=== PATIENT | male | born 1955 | race Two or more races ===

== ENCOUNTER 2019-07-10 11:18 | Emergency (ER) | payer MEDICAID ==
[~2019-07-10] VITALS: Ht 172.7 cm; Wt 81.6 kg
[~2019-07-10 11:18] MED LIST: AMOXICILLIN500 MG ORAL; PROMETHAZINE-C118 M1 ORAL; UNOBMED
[2019-07-10] MEDS ORDERED: NKM (11:29)
[2019-07-10 11:30] VITALS: BP 121/63
--- NOTE | 2019-07-10 11:31 | Emergency Room Report ---
History of Present Illness General Chief Complaint: Male Urogenital Problems Source: Patient Present Illness HPI Patient is a 64-year-old male with increased right-sided flank pain for the past 3 days. Patient reports having prior history of prostate disease. He denies any vomiting. He reports having some increased urinary discomfort. Allergies: Coded Allergies: No Known Allergies (Unverified , 10/11/18) Patient History Reviewed Nursing Documentation: PMH: Agreed; PSxH: Agreed Nursing Documentation-PMH Past Medical History: No History, Except For Hx Cardiac Problems: Yes - heart attack May 2018 Review of Systems All Other Systems: negative except mentioned in HPI Physical Exam Vital Signs Date Time Temp Pulse Resp B/P (MAP) Pulse Ox O2 Delivery O2 Flow Rate FiO2 07/10/19 11:23 97.9 20 106/65 (79) 97 Room Air General Appearance: well appearing, no apparent distress, alert, GCS 15 Head: normocephalic, atraumatic ENT: hearing grossly normal, normal voice Neck: full range of motion, supple Respiratory: lungs clear, no respiratory distress, speaking full sentences Cardiovascular #1: normal inspection, no edema Musculoskeletal: normal inspection Neurologic: alert, motor strength/tone normal, 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 Differential diagnosis included was not limited to pneumonia, renal stone, rib fracture, pulmonary embolism, ulcer, enteritis, pyelonephritis among others. CT imaging was ordered to evaluate for possible renal stone. CT imaging read by radiology showed enlarged prostate without evident renal stone. Laboratory testing was unremarkable. Patient was given prescription for oral antibiotics as well as pain medications. He was advised to follow-up with a urology in the next few days. He is to return if worse. This medical record is generated with [employer] grader operator software. There may be some grader operator discrepancies related to use of this software Labs Test 07/10/19 12:55 07/10/19 13:15 White Blood Count 10.8 K/UL (4.8-10.8) Red Blood Count 6.03 M/UL (4.70-6.10) Hemoglobin 18.0 G/DL (14.2-18.0) Hematocrit 55.1 % (42.0-52.0) Mean Corpuscular Volume 91 FL (80-99) Mean Corpuscular Hemoglobin 29.9 PG (27.0-31.0) Mean Corpuscular Hemoglobin Concent 32.7 G/DL (32.0-36.0) Red Cell Distribution Width 12.0 % (11.6-14.8) Platelet Count 223 K/UL (150-450) Mean Platelet Volume 9.9 FL (6.5-10.1) Neutrophils (%) (Auto) 62.3 % (45.0-75.0) Lymphocytes (%) (Auto) 25.6 % (20.0-45.0) Monocytes (%) (Auto) 9.2 % (1.0-10.0) Eosinophils (%) (Auto) 1.9 % (0.0-3.0) Basophils (%) (Auto) 1.0 % (0.0-2.0) Sodium Level 140 MMOL/L (136-145) Potassium Level 4.1 MMOL/L (3.5-5.1) Chloride Level 103 MMOL/L (98-107) Carbon Dioxide Level 30 MMOL/L (21-32) Anion Gap 8 mmol/L (5-15) Blood Urea Nitrogen 10 mg/dL (7-18) Creatinine 1.1 MG/DL (0.55-1.30) Estimat Glomerular Filtration Rate > 60 mL/min (>60) Glucose Level 92 MG/DL (74-106) Calcium Level 8.8 MG/DL (8.5-10.1) Total Bilirubin 0.5 MG/DL (0.2-1.0) Aspartate Amino Transf (AST/SGOT) 20 U/L (15-37) Alanine Aminotransferase (ALT/SGPT) 39 U/L (12-78) Alkaline Phosphatase 71 U/L (46-116) Total Protein 7.3 G/DL (6.4-8.2) Albumin 3.6 G/DL (3.4-5.0) Globulin 3.7 g/dL Albumin/Globulin Ratio 1.0 (1.0-2.7) Urine Color Pale yellow Urine Appearance Clear Urine pH 5 (4.5-8.0) Urine Specific [place] 1.020 (1.005-1.035) Urine Protein Negative (NEGATIVE) Urine Glucose (UA) Negative (NEGATIVE) Urine Ketones Negative (NEGATIVE) Urine Blood 2+ (NEGATIVE) Urine Nitrite Negative (NEGATIVE) Urine Bilirubin Negative (NEGATIVE) Urine Urobilinogen Normal MG/DL (0.0-1.0) Urine Leukocyte Esterase Negative (NEGATIVE) Urine RBC 2-4 /HPF (0 - 0) Urine WBC 0-2 /HPF (0 - 0) Urine Squamous Epithelial Cells Occasional /LPF Urine Bacteria Occasional /HPF (NONE) Last Vital Signs Date Time Temp Pulse Resp B/P (MAP) Pulse Ox O2 Delivery O2 Flow Rate FiO2 07/10/19 11:23 97.9 20 106/65 (79) 97 Room Air Status: improved Disposition: HOME, SELF-CARE Condition: Stable Scripts Ibuprofen* (MOTRIN*) 600 Mg Tablet 600 MG ORAL Q8H PRN for For Pain, #30 TAB 0 Refills Prov: Blue Cortes MD 07/10/19 Ciprofloxacin Hcl* (CIPROFLOXACIN HCL*) 500 Mg Tablet 500 MG ORAL Q12H, #14 TAB 0 Refills Prov: Blue Cortes MD 07/10/19 Blue Cortes MD Jul 10, 2019 11:31
[2019-07-10 12:09] VITALS: BP 121/63
[2019-07-10] MEDS ORDERED: Ketorolac 30mg Inj IV ONE (13:00)
--- NOTE | 2019-07-10 13:01 | Diagnostic Imaging Report ---
Indication: Increased right-sided flank pain for the past 3 days Technique: Spiral acquisitions obtained through the abdomen and pelvis. No oral or IV contrast utilized, per urinary stone protocol. Multiplanar reconstructions were generated. Total dose length product 1435 mGycm. CTDIvol(s) 24 mGy. Dose reduction achieved using automated exposure control Comparison: none Findings: No renal or ureteral calculi, hydronephrosis, or hydroureter demonstrated. There is symmetric standing of the bilateral perinephric fat. Lack of IV contrast limits assessment of the renal parenchyma. No gross renal parenchymal mass or cyst demonstrated. Lack of IV contrast limits assessment of the other solid organs. The liver, gallbladder, bile ducts, pancreas, spleen, adrenals are unremarkable. No retroperitoneal or mesenteric mass or adenopathy. No pelvic mass or adenopathy. The prostate is somewhat enlarged, measuring 5 x 5.2 cm. No evidence of colonic diverticulosis or diverticulitis. The appendix is normal. No small bowel distention. No free or loculated intraperitoneal gas or fluid is evident. There is a small indirect right inguinal hernia which contains only fat. The included lung bases demonstrate posterior dependent atelectatic changes. The bones demonstrate mild degenerative spondylosis changes. Impression: No definite acute abnormality demonstrated Nonspecific bilateral perinephric fat stranding Mild prostatomegaly Incidental findings as noted, including mild degenerative spondylosis, posterior dependent pulmonary atelectatic changes, small fat-containing right inguinal hernia The CT scanner at [facility] is accredited by the [employer] and the scans are performed using protocols designed to limit radiation exposure to as low as reasonably achievable to attain images of sufficient resolution adequate for diagnostic evaluation.
[2019-07-10 13:14] LABS: EOSINOPHILS % (AUTO) 1.9 % (0.0-3.0); HEMATOCRIT 55.1 % (42.0-52.0); LYMPHOCYTES % (AUTO) 25.6 % (20.0-45.0); MEAN CORPUSCULAR VOLUME 91 FL (80-99); MONOCYTES % (AUTO) 9.2 % (1.0-10.0); NEUTROPHILS % (AUTO) 62.3 % (45.0-75.0); PLATELET COUNT 223 K/UL (150-450); RED BLOOD COUNT 6.03 M/UL (4.70-6.10); WHITE BLOOD COUNT 10.8 K/UL (4.8-10.8)
[2019-07-10 13:30] LABS: ANION GAP 8 mmol/L (5-15); BLOOD UREA NITROGEN 10 mg/dL (7-18); CALCIUM 8.8 MG/DL (8.5-10.1); CARBON DIOXIDE 30 MMOL/L (21-32); CHLORIDE 103 MMOL/L (98-107); CREATININE 1.1 MG/DL (0.55-1.30); POTASSIUM 4.1 MMOL/L (3.5-5.1); SODIUM 140 MMOL/L (136-145)
[2019-07-10 13:33] LABS: ALANINE AMINOTRANSFERASE 39 U/L (12-78); ALBUMIN 3.6 G/DL (3.4-5.0); ALKALINE PHOSPHATASE 71 U/L (46-116); ASPARTATE AMINO TRANSFERASE 20 U/L (15-37); BILIRUBIN,TOTAL 0.5 MG/DL (0.2-1.0)
[2019-07-10] MEDS ORDERED: CIPROFLOXACIN500 M2 ORAL (13:37)
[2019-07-10] MEDS ORDERED: IBUPROFEN600 MG ORAL (13:37)
[2019-07-10 13:50] VITALS: BP 125/66
[2019-07-10 13:58] LABS: APPEARANCE,URINE CLEAR; BILIRUBIN, URINE NEGATIVE (NEGATIVE); COLOR,URINE PALE YELLOW; GLUCOSE, URINE (UA) NEGATIVE (NEGATIVE); KETONES,URINE NEGATIVE (NEGATIVE); LEUKOCYTE ESTERASE ,URINE NEGATIVE (NEGATIVE); NITRITE,URINE NEGATIVE (NEGATIVE); PH,URINE 5 (4.5-8.0); PROTEIN,URINE NEGATIVE (NEGATIVE); UROBILINOGEN,URINE NORMAL MG/DL (0.0-1.0)
== END 2019-07-10 13:50 | disposition home or self-care (01) ==
LOC: EMR 12:36
DX: M54.5 Low back pain (principal); N40.0 Benign prostatic hyperplasia without lower urinary tract symptoms; I25.2 Old myocardial infarction
CPT/HCPCS: 36415; 74176; 80053; 81003; 85025; 96374; J1885; Z7502; 99284

== ENCOUNTER 2020-07-04 04:42 | Inpatient (IN) | payer MEDICAID ==
[~2020-07-04] VITALS: Ht 170.2 cm; Wt 79.4 kg
[~2020-07-04 04:42] MED LIST changes: +CIPROFLOXACIN500 M2 ORAL; +IBUPROFEN600 MG ORAL; +NKM
--- NOTE | 2020-07-04 05:00 | NUR ---
ED Nurse Note: Pt ambulated to ED from home c/o lower abdominal pain with urinary urgency and penile pain for several hours. Pt presents with fever 100.3, pt is A&OX4, vss. Pt has a hx of BPH. small thin yellowish discharge noted from urethra.
--- NOTE | 2020-07-04 05:13 | Emergency Room Report ---
History of Present Illness General Chief Complaint: Male Urogenital Problems Source: Patient Present Illness HPI 65-year-old male in hospital medical history of BPH presents to the emergency department with chief complaint of urinary retention since last night. Patient states that he last saw a urologist 3 months ago. He is taking daily tamsulosin but has noticed increased urinary urgency and difficulty voiding progressively for the past 3 months. He denies any nausea, vomiting, diarrhea constipation, chest pain, midline back pain, saddle anesthesia flank pain, fever, penile discharge, dysuria, hematuria, melena or hematochezia. He states that this is similar to the last time he was here in the emergency department for similar issue in 2019 The patient's symptoms were gradual onset, severity was moderate, duration since 1 to 2 days. Quality: Urinary hesitancy Past medical history: BPH Past surgical history: Denies Smoking: Denies Alcohol use: Denies Drug use: Denies Review of systems: CONST: No fevers or chills, No night sweats PULMONARY: No productive cough, No shortness of breath CARDIAC: No chest pain, No palpitations GI: No vomiting, No diarrhea , No melena_or_BRBPR : No dysuria, No hematuria, No discharge NEURO: No new_focal_weakness_or_numbness, No confusion, No vision changes 14 point Review of Systems is otherwise negative except per HPI Physical Exam: GENERAL: Awake_alert_ nontoxic, no acute distress Spo2 98% on RA -febrile. EYES: Extraocular muscles are intact. Conjunctivae clear. Lids without swelling ENT: External nose and ear normal_in_appearance. Oropharynx clear. Head_atraumatic, Moist_oral_mucosa NECK: No JVD. No meningismus. No thyromegaly. Supple. Trachea midline RESP: Normal respiratory effort. Symmetric rise. No stridor. Clear_to_ausculta tion_No_rales_No_wheezes CARDIAC: Tachycardic and regular rhytm. No_significant pedal edema. ABDOMEN: Soft. Nondistended. Suprapubic tenderness to palpation_No_rebound_or_guarding. No CVA tenderness to palpation Negative Munoz sign : Uncircumcised. No scrotal lesion. No penile discharge. Normal testicular lie bilaterally. Chaperoned by AMANDA LEMUS: Normal muscle tone, without rigidity. Extremities without asymmetric deformity or swelling. SKIN: Warm and dry. No visible cyanosis or pallor NEUROLOGIC: Alert, oriented x3. Motor_and_sensation_grossly_intact. No truncal ataxia. Gait_normal Psych: Normal mood and affect, normal judgment and insight - COORDINATION OF CARE Case was discussed with: Patient Any labs and imaging that were ordered were interpreted as part of the medical decision making: Medical Decision Making/Plan: Differential diagnosis includes Urinary retention secondary to BPH, prostatitis, epididymitis, pyelonephritis/UTI, pancreatitis, atypical appendicitis, gastroparesis, gastritis, peptic ulcer disease, among others. Doubt cholecystitis, choledocholithiasis, hepatitis, small bowel obstruction, volvulus, AAA Patient is well appearing with stable vital signs although he is noted to be febrile and tachycardic. Abdominal exam demonstrates suprapubic tenderness palpation without rebound or guarding. I did review previous medical records. Patient has history of BPH as noted on CT scan Tijerina was inserted. Labs ordered to evaluate for obstructive uropathy. Septic work-up ordered due to fever and tachycardia. Patient received NS 30 cc/kg bolus. Blood cultures and urine cultures were collected. Rocephin given CT abd/pelvis pending. Care to be transitioned to oncoming ER doctor Dr Haque Allergies: Coded Allergies: No Known Allergies (Unverified , 10/11/18) COVID-19 Screening Contact w/high risk pt: No Experienced COVID-19 symptoms?: Yes COVID-19 Testing performed [employer]: Yes - may 2019 COVID-19 Screening: Negative COVID-19 COVID-19 Testing Source: [facility] Nursing Documentation-[facility] Past Medical History: No History, Except For Hx Cardiac Problems: Yes - heart attack May 2018 Physical Exam Vital Signs Date Time Temp Pulse Resp B/P (MAP) Pulse Ox O2 Delivery O2 Flow Rate FiO2 07/04/20 04:56 100.9 101 18 111/58 (75) 97 Room Air Sp02 EP Interpretation: reviewed, normal Medical Decision Making Diagnostic Impression: Primary Impression: BPH (benign prostatic hyperplasia) Additional Impression: Urinary retention EKG Diagnostic Results Troponin ordered: Yes When was troponin ordered?: Jul 04, 2020 Rhythm Strip Diag. Results Rhythm Strip Time: 05:48 EP Interpretation: yes Rate: 101 Rhythm: no PVC's, no ectopy, other - Sinus tachycardia Reevaluation Time: 05:48 Last Vital Signs Date Time Temp Pulse Resp B/P (MAP) Pulse Ox O2 Delivery O2 Flow Rate FiO2 07/04/20 04:56 100.9 101 18 111/58 (75) 97 Room Air Status: improved Admit Decision Time: 06:00 Condition: Stable Signed Out To: Liza Lundberg D.O. Jul 04, 2020 05:13
[2020-07-04 05:30] VITALS: BP 111/58
--- NOTE | 2020-07-04 05:30 | NUR ---
ED Nurse Note: 18F coude cath inserted without complication, small amount of cloudy yellow urine noted, MD verified placement and bladder capacity via US. pt tolerated well.
[2020-07-04] MEDS: Tamsulosin 0.4mg cap ORAL SCH ×2 (05:44→05:48)
[2020-07-04] MEDS ORDERED: cefTRIAXone 1 GM in NS 55 ML IVPB ONE ×2 (05:45→06:00)
[2020-07-04] MEDS ORDERED: Tamsulosin 0.4mg cap ORAL ONE (05:45)
[2020-07-04] MEDS ORDERED: Morphine Sulfate 4mg/ml Inj (IV USE ONLY) ONE (05:46)
[2020-07-04] MEDS: Morphine Sulfate 4mg/ml Inj (IV USE ONLY) IVP ONE ×2 (05:47→05:48)
[2020-07-04 05:57] LABS: BILIRUBIN, URINE NEGATIVE (NEGATIVE); GLUCOSE, URINE (UA) NEGATIVE (NEGATIVE); KETONES,URINE 2+ (NEGATIVE); LEUKOCYTE ESTERASE ,URINE 3+ (NEGATIVE); NITRITE,URINE POSITIVE (NEGATIVE); PH,URINE 5 (4.5-8.0); PROTEIN,URINE 3+ (NEGATIVE); UROBILINOGEN,URINE NORMAL MG/DL (0.0-1.0)
[2020-07-04 05:58] LABS: HEMATOCRIT 47.6 % (42.0-52.0); HEMOGLOBIN 15.9 G/DL (14.2-18.0); MEAN CORPUSCULAR VOLUME 92 FL (80-99); PLATELET COUNT 177 K/UL (150-450); RED BLOOD COUNT 5.19 M/UL (4.70-6.10)
[2020-07-04] MEDS ORDERED: Acetaminophen 500mg (ES) tab ORAL ONE (06:00)
[2020-07-04] MEDS ORDERED: Omnipaque-300 100ml vial INJ PRN (06:00)
[2020-07-04] MEDS ORDERED: Acetaminophen 650 MG SUPP RECTAL ONE (06:00)
[2020-07-04 06:11] LABS: CALCIUM 8.9 MG/DL (8.5-10.1); CREATININE 1.3 MG/DL (0.55-1.30); POTASSIUM 4.2 MMOL/L (3.5-5.1)
[2020-07-04 06:21] LABS: APPEARANCE,URINE CLOUDY; COLOR,URINE YELLOW
[2020-07-04 06:23] LABS: ALBUMIN 3.4 G/DL (3.4-5.0); ALBUMIN/GLOBULIN RATIO 0.9 (1.0-2.7); BILIRUBIN,TOTAL 1.6 MG/DL (0.2-1.0)
[2020-07-04 06:26] LABS: WHITE BLOOD COUNT 31.5 K/UL (4.8-10.8)
[2020-07-04 06:29] LABS: BILIRUBIN,DIRECT 0.2 MG/DL (0.0-0.3)
[2020-07-04 06:32] LABS: INR 1.1 (0.9-1.1)
--- NOTE | 2020-07-04 06:42 | NUR ---
ED Nurse Note: Pt to Ct
--- NOTE | 2020-07-04 07:56 | Diagnostic Imaging Report ---
EXAM: CT Abdomen and Pelvis With Intravenous Contrast CLINICAL HISTORY: 65-year-old male in hospital medical history of BPH presents to the emergency department with chief complaint of urinary retention since last night. Patient states that he last saw a urologist 3 months ago. He is taking daily tamsulosin but has noticed increased urinary urgency and difficulty voiding progressively for the past 3 months. He denies any nausea, vomiting, diarrhea constipation, chest pain, midline back pain, saddle anesthesia flank pain, fever, penile discharge, dysuria, hematuria, melena or hematochezia. He states that this is similar to the last time he was here in the emergency department for similar issue in 2019 TECHNIQUE: Axial computed tomography images of the abdomen and pelvis with intravenous contrast. CTDI is 7.60 mGy and DLP is 432.60 mGy-cm. One or more of the following dose reduction techniques were used: automated exposure control, adjustment of the mA and/or kV according to patient size, use of iterative reconstruction technique. COMPARISON: July 10, 2019. FINDINGS: Artifacts: Motion artifact. Lung bases: Dependent vascular congestion in the lung bases. ABDOMEN: Liver: Unremarkable. No mass. Gallbladder and bile ducts: Unremarkable. No calcified stones. No ductal dilation. Pancreas: Unremarkable. No mass. No ductal dilation. Spleen: Unremarkable. No splenomegaly. Adrenals: Unremarkable. No mass. Kidneys and ureters: Bilateral perinephric stranding, similar to prior exam. No hydronephrosis. No renal or ureteral stones on this contrast- enhanced study. Stomach and bowel: Distended stomach. No small bowel obstruction. Diverticulosis without evidence of diverticulitis. PELVIS: Appendix: Normal appendix. Bladder: Tijerina balloon within decompressed bladder. Reproductive: Enlarged prostate measuring 5.2 x 6.7 x 5.4 cm. Mild stranding about the prostate and bilateral seminal vesicles. ABDOMEN and PELVIS: Intraperitoneal space: Unremarkable. No free air. No significant fluid collection. Bones/joints: No acute fracture. No dislocation. Soft tissues: Small right inguinal hernia containing fat. Vasculature: Normal caliber abdominal aorta. Lymph nodes: Unremarkable. No enlarged lymph nodes. IMPRESSION: Enlarged prostate measuring 5.2 x 6.7 x 5.4 cm with encroachment into bladder base. Mild stranding about the prostate and bilateral seminal vesicles, correlate for infection. Bilateral perinephric stranding, similar to prior exam, may be due to chronic medical renal disease. Correlate with clinical findings and lab values to exclude pyelonephritis. No hydronephrosis. No renal or ureteral stones on this contrast-enhanced study.
[2020-07-04] MEDS ORDERED: Ciprofloxacin 500mg tab ORAL ONE (08:00)
--- NOTE | 2020-07-04 08:20 | NUR ---
ED Nurse Note: received hand off from AMANDA Reyna for continuity of care. Pt on bed, awake and alert x4, pt satting well on RA, denies any discomfort as of now. Pt was tested for rapid covid, swab sent to lab.
[2020-07-04 10:06] VITALS: BP 115/62
[2020-07-04 14:05] VITALS: BP 118/66
--- NOTE | 2020-07-04 14:05 | NUR ---
ED Nurse Note: pt on bed, awake and alert x 4, no acute distress as of now. Noted urine output on ribeiro with 600ml yellowish urine with sediments.
[2020-07-04] MEDS ORDERED: FLOMAX0.4 MG ORAL (14:26)
[2020-07-04] MEDS ORDERED: Miralax 17gm pkt ORAL PRN (14:30)
[2020-07-04] MEDS ORDERED: Albuterol/Ipratropium 3ml neb HHN PRN (14:30)
--- NOTE | 2020-07-04 14:44 | NUR ---
ED Nurse Note: juice and water offered to pt.
--- NOTE | 2020-07-04 17:21 | NUR ---
ED Nurse Note: handed dinner tray to pt.
--- NOTE | 2020-07-04 19:35 | NUR ---
NURSE NOTES: Receive a report from AMANDA Kuhn from ED.
--- NOTE | 2020-07-04 19:43 | NUR ---
ED Nurse Note: hand off given to AMANDA Brown in MS unit
--- NOTE | 2020-07-04 19:55 | NUR ---
NURSE NOTES: Pt admitted from ED via gurney. Awake and alert. Syriac/Persian speaking. No respiratory distress noted. Feeling chill. Tylenol 650mg given @ ED for fever before admitted. Tijerina catheter 16 Fr. inserted stated and cloudy urine patent. Skin intact. Done check belonging list. Provide unit orientation. Bed is locked and lowest. Call light within reach. Will continue to monitor.
--- NOTE | 2020-07-04 19:55 | NUR ---
ED Nurse Note: Pt was transferred to [facility] unit under the care of dr alvarez, report given to guido rn for continuity of care.Pt was transferred on stable condition; all belongings was sent with pt.
[2020-07-04 20:00] VITALS: BP 120/55
--- NOTE | 2020-07-04 20:20 | NUR ---
NURSE NOTES: Received admission orders by Dr. Yung. Reported pt's pain on lower abdomen for pain medication. Will continue to follow up.
[2020-07-04] MEDS: Morphine Sulfate 2mg/ml Inj(IV/IM USE ONLY) IVP PRN (21:44)
[2020-07-04] MEDS: Cefepime HCl 2 GM in NS 110 ML IV SCH (21:54)
[2020-07-04] MEDS: Heparin 5000 units/ml inj SUBQ SCH (21:58)
[2020-07-04] MEDS ORDERED: Vancomycin 1.5gm/300ml Premix IVPB ONE (22:00)
--- NOTE | 2020-07-04 22:55 | History & Physical ---
History and Physical History & Physicial -[id number] Yinka Lorenzo MD Jul 04, 2020 22:55
--- NOTE | 2020-07-04 23:00 | NUR ---
NURSE NOTES: Given IV ATB and pain medication. No adverse reactions noted. Will continue to monitor.
[2020-07-05] VITALS: BP 92/57
[2020-07-05] MEDS ORDERED: Vancomycin 1 GM in D5W 275 ML IV SCH (00:30)
[2020-07-05 04:30] VITALS: BP 121/65
--- NOTE | 2020-07-05 07:21 | NUR ---
NURSE NOTES: Report received from o RN, rounds made. Patient resting in semi-fowlers position in bed. AOx4, Japanese/Kiswahili speaking. Respirations even/unlabored on RA. Denies SOB, pain, NV. FC draining y/cloudy urine. Call light in reach, bed in lowest position, will continue to monitor.
--- NOTE | 2020-07-05 07:30 | NUR ---
NURSE HAND-OFF: Important Events on Shift: Admission for Sepsis/ UTI, Urine patent via ribeiro cath. Patient Status: stable Diet: [regular] Pending Orders: [] Pending Results/Labs:[] Pending MD notification:[] Latest Vital Signs: Temperature 98.7 , Pulse 86 , B/P 121 /65 , Respiratory Rate 18 , O2 SAT 95 , Room Air, O2 Flow Rate . Vital Sign Comment: [] Latest [place] Fall Score: 20 Fall Risk: Low Risk Safety Measures: Call light Within Reach, Bed Alarm , Side Rails Side Rails x2, Bed position Low and Locked. Fall Precautions: Yellow Socks Door Sign Patient Fall Education Report given to AMANDA Antonio. Round is done.
[2020-07-05 08:00] VITALS: BP 121/62
--- NOTE | 2020-07-05 08:59 | Consultation ---
History of Present Illness General Date patient seen: Jul 05, 2020 Time patient seen: 12:22 Chief Complaint: Male Urogenital Problems Referring physician: PCP Reason for Consultation: GNR bacteremia, sepsis Present Illness HPI 65yo M w/ BPH who p/w urinary retention x1 day and 3 months of worsening urinary urgency and difficulty voiding. Admitted for sepsis. Found to have leukocytosis to 31, GNR bacteremia, GNR in UCx as well, for which ID is consulted. Pt reports feeling overall much better now than on admission, lots of UOP w/ ribeiro in place, less abd pain, less pain all over, less fevers. No allergies to abx. Allergies: Coded Allergies: No Known Allergies (Unverified , 10/11/18) Medication History Scheduled Amoxicillin* (Amoxil*), 500 MG ORAL THREE TIMES A DAY Ciprofloxacin Hcl* (Ciprofloxacin Hcl*), 500 MG ORAL Q12H No Known Medications* (NKM - No Known Medications*), 0 ., (Reported) Tamsulosin HCl (Flomax), 0.4 MG ORAL DAILY, (Reported) Scheduled PRN Codeine/Promethazine Hcl* (Promethazine-Codeine Syrup*), 5 ML ORAL Q6H PRN for For Cough Ibuprofen (Motrin), 600 MG ORAL Q8H PRN for For Pain Miscellaneous Medications Unable to Obtain Medications (Unable To Obtain Meds), Unknown Dose, (Reported) Patient History Healthcare decision maker Resuscitation status Advanced Directive on File Review of Systems ROS Narrative 10-point ROS neg except as noted in HPI Physical Exam Physical Exam Narrative Gen: NAD HEENT: NCAT Pulm: BL chest rise on RA Abd: Soft, NTND, no CVAT Ext: No c/c/e Skin: No visible rashes Neuro: Awake, alert, interactive Lines: Ribeiro Last 24 Hour Vital Signs Date Time Temp Pulse Resp B/P (MAP) Pulse Ox O2 Delivery O2 Flow Rate FiO2 07/05/20 04:30 98.7 86 18 121/65 (83) 95 07/05/20 00:00 98.4 77 18 92/57 (69) 95 07/04/20 21:00 Room Air 07/04/20 20:20 Room Air 07/04/20 20:00 99.5 93 18 120/55 (76) 96 07/04/20 19:55 102.0 83 17 120/68 100 Room Air 07/04/20 19:55 99.5 07/04/20 14:05 98.4 82 16 118/66 99 Room Air 07/04/20 10:06 95 19 115/62 98 Room Air Intake and Output 07/04/20 07/05/20 19:00 07:00 Intake Total 300 ml 350 ml Output Total 600 ml 850 ml Balance -300 ml -500 ml Intake Oral 300 ml 350 ml Output Urine Total 600 ml 850 ml Height (Feet): 5 Height (Inches): 7.00 Weight (Pounds): 175 Medications Current Medications Medications (Trade) Dose Ordered Sig/Jane Route PRN Reason Start Time Stop Time Status Last Admin Dose Admin Acetaminophen (Tylenol) 650 mg Q4H PRN ORAL fever 07/04/20 14:30 08/03/20 14:29 07/04/20 19:23 Albuterol/ Ipratropium (Albuterol/ Ipratropium) 3 ml Q4H PRN HHN Shortness of Breath 07/04/20 14:30 07/09/20 14:29 Cefepime HCl 2 gm/ Sodium Chloride 110 ml @ 220 mls/hr EVERY 12 HOURS IV 07/04/20 21:00 07/11/20 20:59 07/04/20 21:54 Heparin Sodium (Porcine) (Heparin 5000 units/ml) 5,000 units EVERY 12 HOURS SUBQ 07/04/20 21:00 08/18/20 20:59 07/04/20 21:58 Iohexol (OMNIPAQUE-300 100ml) 100 ml NOW PRN INJ Radiology Procedure 07/04/20 06:00 07/06/20 05:59 Morphine Sulfate (Morphine Sulfate) 2 mg Q4H PRN IVP For Pain 07/04/20 20:45 07/11/20 20:44 07/04/20 21:44 Ondansetron HCl (Zofran) 4 mg Q6H PRN IVP Nausea & Vomiting 07/04/20 14:30 08/03/20 14:29 Polyethylene Glycol (Miralax) 17 gm DAILYPRN PRN ORAL Constipation 07/04/20 14:30 08/03/20 14:29 Tamsulosin HCl (Flomax) 0.4 mg BEDTIME ORAL 07/05/20 21:00 08/04/20 20:59 Temazepam (Restoril) 15 mg HSPRN PRN ORAL Insomnia 07/04/20 14:30 07/11/20 14:29 Vancomycin HCl 250 ml @ 166.667 mls/hr Q24H IVPB 07/05/20 22:00 07/10/20 21:59 Vancomycin HCl (Vanco pharmacy to dose) 1 ea DAILY PRN MISC PER RX PROTOCOL 07/04/20 18:45 08/03/20 18:44 Assessment/Plan Assessment/Plan: 65yo M with: Febrile to 102 Sepsis Leukocytosis to 31 GNR bacteremia likely 2/2 urinary source, pyelo UTI BL perinephric stranding, likely pyelonephritis 07/04 BCx +GNRs UA+, UCx +GNRs COVID rapid test neg CT A/P: Enlarged prostate measuring 5.2 x 6.7 x 5.4 cm with encroachment into bladder base. Mild stranding about the prostate and bilateral seminal vesicles, correlate for infection. Bilateral perinephric stranding, similar to prior exam, may be due to chronic medical renal disease. Correlate with clinical findings and lab values to exclude pyelonephritis. No hydronephrosis. No renal or ureteral stones on this contrast-enhanced study. FORREST vs CKD, Cr 1.3 BPH Plan: Cont cefepime #2 Cont vanco #2 empiric for now, if cx remain neg for GPCs will stop soon F/u BCx, UCx +GNR Trend WBC Monitor CBC/CMP Monitor temp curve, hemodynamics Monitor resp status D/w RN Thank you for this consult. [facility] will continue to follow. More Cardenas M.D. Jul 05, 2020 08:59
[2020-07-05] MEDS ORDERED: Tamsulosin 0.4mg cap ORAL SCH (09:00)
[2020-07-05] MEDS: Cefepime HCl 2 GM in NS 110 ML IV SCH ×2 (09:14→20:09)
[2020-07-05] MEDS: Heparin 5000 units/ml inj SUBQ SCH ×2 (09:16→20:10)
[2020-07-05] MEDS ORDERED: Tubing IV Secondary IV ONE (09:47)
[2020-07-05] MEDS ORDERED: NS 500ML ONE (09:47)
[2020-07-05 11:38] LABS: HEMATOCRIT 44.6 % (42.0-52.0); HEMOGLOBIN 15.4 G/DL (14.2-18.0); MEAN CORPUSCULAR VOLUME 91 FL (80-99); PLATELET COUNT 146 K/UL (150-450); RED BLOOD COUNT 4.91 M/UL (4.70-6.10); RED CELL DISTRIBUTION WIDTH 13.4 % (11.6-14.8)
[2020-07-05 11:40] LABS: WHITE BLOOD COUNT 25.7 K/UL (4.8-10.8)
--- NOTE | 2020-07-05 11:42 | Consultation ---
History of Present Illness General Date patient seen: Jul 05, 2020 Chief Complaint: Male Urogenital Problems Referring physician: PCP Reason for Consultation: GNR bacteremia, sepsis Present Illness HPI 65-year-old with PMHx of BPH presents to the emergency department with chief complaint of urinary retention since last night. He was found to be septic with high WBC and is admitted for further management. Allergies: Coded Allergies: No Known Allergies (Unverified , 10/11/18) Medication History Scheduled Amoxicillin* (Amoxil*), 500 MG ORAL THREE TIMES A DAY Ciprofloxacin Hcl* (Ciprofloxacin Hcl*), 500 MG ORAL Q12H No Known Medications* (NKM - No Known Medications*), 0 ., (Reported) Tamsulosin HCl (Flomax), 0.4 MG ORAL DAILY, (Reported) Scheduled PRN Codeine/Promethazine Hcl* (Promethazine-Codeine Syrup*), 5 ML ORAL Q6H PRN for For Cough Ibuprofen (Motrin), 600 MG ORAL Q8H PRN for For Pain Miscellaneous Medications Unable to Obtain Medications (Unable To Obtain Meds), Unknown Dose, (Reported) Patient History Healthcare decision maker Resuscitation status Advanced Directive on File Past Medical/Surgical History Past Medical/Surgical History: (1) BPH (benign prostatic hyperplasia) Physical Exam General Appearance: WD/WN Lines, tubes and drains: peripheral HEENT: normocephalic, atraumatic Neck: non-tender, normal alignment, supple Respiratory/Chest: chest wall non-tender, lungs clear, normal breath sounds Cardiovascular/Chest: normal peripheral pulses, normal rate Abdomen: normal bowel sounds, non tender Genitourinary/Rectal: normal genital exam Extremities: normal range of motion, non-tender Skin Exam: normal pigmentation Last 24 Hour Vital Signs Date Time Temp Pulse Resp B/P (MAP) Pulse Ox O2 Delivery O2 Flow Rate FiO2 07/05/20 08:00 98.6 91 16 121/62 (81) 95 07/05/20 04:30 98.7 86 18 121/65 (83) 95 07/05/20 00:00 98.4 77 18 92/57 (69) 95 07/04/20 21:00 Room Air 07/04/20 20:20 Room Air 07/04/20 20:00 99.5 93 18 120/55 (76) 96 07/04/20 19:55 102.0 83 17 120/68 100 Room Air 07/04/20 19:55 99.5 07/04/20 14:05 98.4 82 16 118/66 99 Room Air Intake and Output 07/04/20 07/05/20 19:00 07:00 Intake Total 300 ml 350 ml Output Total 600 ml 850 ml Balance -300 ml -500 ml Intake Oral 300 ml 350 ml Output Urine Total 600 ml 850 ml Laboratory Tests Test 07/05/20 10:10 White Blood Count Pending Red Blood Count Pending Hemoglobin Pending Hematocrit Pending Mean Corpuscular Volume Pending Mean Corpuscular Hemoglobin Pending Mean Corpuscular Hemoglobin Concent Pending Red Cell Distribution Width Pending Platelet Count Pending Mean Platelet Volume Pending Neutrophils (%) (Auto) Pending Lymphocytes (%) (Auto) Pending Monocytes (%) (Auto) Pending Eosinophils (%) (Auto) Pending Basophils (%) (Auto) Pending Sodium Level Pending Potassium Level Pending Chloride Level Pending Carbon Dioxide Level Pending Blood Urea Nitrogen Pending Creatinine Pending Estimat Glomerular Filtration Rate Pending Glucose Level Pending Calcium Level Pending Total Bilirubin Pending Aspartate Amino Transf (AST/SGOT) Pending Alanine Aminotransferase (ALT/SGPT) Pending Alkaline Phosphatase Pending Total Protein Pending Albumin Pending Globulin Pending Height (Feet): 5 Height (Inches): 7.00 Weight (Pounds): 175 Medications Current Medications Medications (Trade) Dose Ordered Sig/Jane Route PRN Reason Start Time Stop Time Status Last Admin Dose Admin Acetaminophen (Tylenol) 650 mg Q4H PRN ORAL fever 07/04/20 14:30 08/03/20 14:29 07/05/20 09:13 Albuterol/ Ipratropium (Albuterol/ Ipratropium) 3 ml Q4H PRN HHN Shortness of Breath 07/04/20 14:30 07/09/20 14:29 Cefepime HCl 2 gm/ Sodium Chloride 110 ml @ 220 mls/hr EVERY 12 HOURS IV 07/04/20 21:00 07/11/20 20:59 07/05/20 09:14 Heparin Sodium (Porcine) (Heparin 5000 units/ml) 5,000 units EVERY 12 HOURS SUBQ 07/04/20 21:00 1/24/21 20:59 07/05/20 09:16 Iohexol (OMNIPAQUE-300 100ml) 100 ml NOW PRN INJ Radiology Procedure 07/04/20 06:00 07/06/20 05:59 Morphine Sulfate (Morphine Sulfate) 2 mg Q4H PRN IVP For Pain 07/04/20 20:45 07/11/20 20:44 07/04/20 21:44 Ondansetron HCl (Zofran) 4 mg Q6H PRN IVP Nausea & Vomiting 07/04/20 14:30 08/03/20 14:29 Polyethylene Glycol (Miralax) 17 gm DAILYPRN PRN ORAL Constipation 07/04/20 14:30 08/03/20 14:29 Tamsulosin HCl (Flomax) 0.4 mg BEDTIME ORAL 07/05/20 21:00 08/04/20 20:59 Temazepam (Restoril) 15 mg HSPRN PRN ORAL Insomnia 07/04/20 14:30 07/11/20 14:29 Vancomycin HCl 250 ml @ 166.667 mls/hr Q24H IVPB 07/05/20 22:00 07/10/20 21:59 Vancomycin HCl (Vanco pharmacy to dose) 1 ea DAILY PRN MISC PER RX PROTOCOL 07/04/20 18:45 08/03/20 18:44 Assessment/Plan Problem List: (1) Sepsis ICD Codes: A41.9 - Sepsis, unspecified organism SNOMED: 07959608 (2) Prostate hypertrophy ICD Codes: N40.0 - Benign prostatic hyperplasia without lower urinary tract symptoms SNOMED: 303761098 (3) BPH (benign prostatic hyperplasia) ICD Codes: N40.0 - Benign prostatic hyperplasia without lower urinary tract symptoms SNOMED: 045553829 Assessment/Plan: iv fluids IV abx check electrolytes will need Urology evaluation. Charlene Yung MD Jul 05, 2020 11:42
--- NOTE | 2020-07-05 11:50 | NUR ---
NURSE NOTES: Critical value WBC 25.7, Dr. Cardenas notified, no new orders received.
[2020-07-05 11:58] LABS: ALANINE AMINOTRANSFERASE 23 U/L (12-78); ALBUMIN 2.5 G/DL (3.4-5.0); ALBUMIN/GLOBULIN RATIO 0.6 (1.0-2.7); ALKALINE PHOSPHATASE 70 U/L (46-116); ANION GAP 6 mmol/L (5-15); ASPARTATE AMINO TRANSFERASE 21 U/L (15-37); BILIRUBIN,TOTAL 0.6 MG/DL (0.2-1.0); BLOOD UREA NITROGEN 19 mg/dL (7-18); CALCIUM 8.6 MG/DL (8.5-10.1); CARBON DIOXIDE 27 MMOL/L (21-32); CHLORIDE 101 MMOL/L (98-107); CREATININE 1.2 MG/DL (0.55-1.30); POTASSIUM 3.9 MMOL/L (3.5-5.1); SODIUM 134 MMOL/L (136-145)
[2020-07-05 12:00] VITALS: BP 115/65
--- NOTE | 2020-07-05 12:32 | NUR ---
CASE MANAGEMENT:INITIAL REVIEW 65 YR OLD MALE FROM HOME CC;MALE UROGENITAL PROBLEMS SI;UTI. SEPSIS. 100.9 98 18 111/58 97% ON RA WBC 31.5 BUN 20 BG 147 T-BILI 1.6 PT 12.0 UA+ PROTEIN, KETONES, BLOOD, NITRITE, LEUKOCYTE ESTERASE, RBC, WBC, BACTERIA COVID RAPID ~ NEGATIVE URINE BLOOD CX + GNR ABD/PELVIS CT ~ Enlarged prostate measuring 5.2 x 6.7 x 5.4 cm with encroachment into bladder base. Mild stranding about the prostate and bilateral seminal vesicles, correlate for infection. IS;IVF NS MORPHINE IV FLOMAX PO ROCEPHIN IV TYLENOL PO ADMITTED TO MED SURG MED SURG STATUS DCP;FROM HOME PLAN; UROLOGY CONSULT AND EVAL
--- NOTE | 2020-07-05 14:02 | Internal Med Progress Note ---
Subjective Physician Name Yinka Lorenzo Attending Physician Yinka Lorenzo MD Current Medications Medications (Trade) Dose Ordered Sig/Jane Route PRN Reason Start Time Stop Time Status Last Admin Dose Admin Acetaminophen (Tylenol) 650 mg Q4H PRN ORAL fever 07/04/20 14:30 08/03/20 14:29 07/05/20 09:13 Albuterol/ Ipratropium (Albuterol/ Ipratropium) 3 ml Q4H PRN HHN Shortness of Breath 07/04/20 14:30 07/09/20 14:29 Cefepime HCl 2 gm/ Sodium Chloride 110 ml @ 220 mls/hr EVERY 12 HOURS IV 07/04/20 21:00 07/11/20 20:59 07/05/20 09:14 Heparin Sodium (Porcine) (Heparin 5000 units/ml) 5,000 units EVERY 12 HOURS SUBQ 07/04/20 21:00 08/18/20 20:59 07/05/20 09:16 Iohexol (OMNIPAQUE-300 100ml) 100 ml NOW PRN INJ Radiology Procedure 07/04/20 06:00 07/06/20 05:59 Morphine Sulfate (Morphine Sulfate) 2 mg Q4H PRN IVP For Pain 07/04/20 20:45 07/11/20 20:44 07/04/20 21:44 Ondansetron HCl (Zofran) 4 mg Q6H PRN IVP Nausea & Vomiting 07/04/20 14:30 08/03/20 14:29 Polyethylene Glycol (Miralax) 17 gm DAILYPRN PRN ORAL Constipation 07/04/20 14:30 08/03/20 14:29 Tamsulosin HCl (Flomax) 0.4 mg BEDTIME ORAL 07/05/20 21:00 08/04/20 20:59 Temazepam (Restoril) 15 mg HSPRN PRN ORAL Insomnia 07/04/20 14:30 07/11/20 14:29 Vancomycin HCl 250 ml @ 166.667 mls/hr Q24H IVPB 07/05/20 22:00 07/10/20 21:59 Vancomycin HCl (Vanco pharmacy to dose) 1 ea DAILY PRN MISC PER RX PROTOCOL 07/04/20 18:45 08/03/20 18:44 Allergies: Coded Allergies: No Known Allergies (Unverified , 10/11/18) Objective Last Vital Signs Date Time Temp Pulse Resp B/P (MAP) Pulse Ox O2 Delivery O2 Flow Rate FiO2 07/05/20 12:00 97.8 83 18 115/65 (82) 95 07/04/20 21:00 Room Air Laboratory Tests Test 07/05/20 10:10 White Blood Count 25.7 K/UL (4.8-10.8) *H Red Blood Count 4.91 M/UL (4.70-6.10) Hemoglobin 15.4 G/DL (14.2-18.0) Hematocrit 44.6 % (42.0-52.0) Mean Corpuscular Volume 91 FL (80-99) Mean Corpuscular Hemoglobin 31.3 PG (27.0-31.0) H Mean Corpuscular Hemoglobin Concent 34.5 G/DL (32.0-36.0) Red Cell Distribution Width 13.4 % (11.6-14.8) Platelet Count 146 K/UL (150-450) L Mean Platelet Volume 12.2 FL (6.5-10.1) H Neutrophils (%) (Auto) % (45.0-75.0) Lymphocytes (%) (Auto) % (20.0-45.0) Monocytes (%) (Auto) % (1.0-10.0) Eosinophils (%) (Auto) % (0.0-3.0) Basophils (%) (Auto) % (0.0-2.0) Differential Total Cells Counted 100 Neutrophils % (Manual) 87 % (45-75) H Lymphocytes % (Manual) 8 % (20-45) L Monocytes % (Manual) 4 % (1-10) Eosinophils % (Manual) 1 % (0-3) Basophils % (Manual) 0 % (0-2) Band Neutrophils 0 % (0-8) Platelet Estimate Decreased L Platelet Morphology Normal Red Blood Cell Morphology Normal Sodium Level 134 MMOL/L (136-145) L Potassium Level 3.9 MMOL/L (3.5-5.1) Chloride Level 101 MMOL/L (98-107) Carbon Dioxide Level 27 MMOL/L (21-32) Anion Gap 6 mmol/L (5-15) Blood Urea Nitrogen 19 mg/dL (7-18) H Creatinine 1.2 MG/DL (0.55-1.30) Estimat Glomerular Filtration Rate > 60 mL/min (>60) Glucose Level 129 MG/DL (74-106) H Calcium Level 8.6 MG/DL (8.5-10.1) Total Bilirubin 0.6 MG/DL (0.2-1.0) Aspartate Amino Transf (AST/SGOT) 21 U/L (15-37) Alanine Aminotransferase (ALT/SGPT) 23 U/L (12-78) Alkaline Phosphatase 70 U/L (46-116) Total Protein 6.4 G/DL (6.4-8.2) Albumin 2.5 G/DL (3.4-5.0) L Globulin 3.9 g/dL Albumin/Globulin Ratio 0.6 (1.0-2.7) L Microbiology Date/Time Source Procedure Growth Status 07/04/20 08:11 Nasopharynx SARS-CoV-2 RdRp Gene Assay - Final Complete 07/04/20 05:30 Urine,Clean Catch Urine Culture - Preliminary Gram Negative Brady Resulted 07/04/20 05:30 Blood Blood Culture - Preliminary Resulted 07/04/20 05:15 Blood Blood Culture - Preliminary Resulted Intake and Output 07/04/20 07/05/20 19:00 07:00 Intake Total 300 ml 350 ml Output Total 600 ml 850 ml Balance -300 ml -500 ml Intake Oral 300 ml 350 ml Output Urine Total 600 ml 850 ml Yinka Lorenzo MD Jul 05, 2020 14:02
[2020-07-05 15:59] VITALS: BP 118/67
--- NOTE | 2020-07-05 16:09 | NUR ---
INSURANCE FAXED CLINICALS/REVIEW [facility] Tele # [phone] ext [phone] MARY Avalos Tele # [phone] ext [phone]
--- NOTE | 2020-07-05 16:10 | NUR ---
NURSE NOTES: Patient reports diarrhea x2, Stool CDIFF obtained (BM was small formed/soft/brown), sent down to lab at this time.
--- NOTE | 2020-07-05 18:57 | Internal Med Progress Note ---
Subjective Physician Name Yinka Lorenzo Attending Physician Yinka Lorenzo MD Current Medications Medications (Trade) Dose Ordered Sig/Jane Route PRN Reason Start Time Stop Time Status Last Admin Dose Admin Acetaminophen (Tylenol) 650 mg Q4H PRN ORAL fever 07/04/20 14:30 08/03/20 14:29 07/05/20 09:13 Albuterol/ Ipratropium (Albuterol/ Ipratropium) 3 ml Q4H PRN HHN Shortness of Breath 07/04/20 14:30 07/09/20 14:29 Cefepime HCl 2 gm/ Sodium Chloride 110 ml @ 220 mls/hr EVERY 12 HOURS IV 07/04/20 21:00 07/11/20 20:59 07/05/20 09:14 Heparin Sodium (Porcine) (Heparin 5000 units/ml) 5,000 units EVERY 12 HOURS SUBQ 07/04/20 21:00 08/18/20 20:59 07/05/20 09:16 Iohexol (OMNIPAQUE-300 100ml) 100 ml NOW PRN INJ Radiology Procedure 07/04/20 06:00 07/06/20 05:59 Morphine Sulfate (Morphine Sulfate) 2 mg Q4H PRN IVP For Pain 07/04/20 20:45 07/11/20 20:44 07/04/20 21:44 Ondansetron HCl (Zofran) 4 mg Q6H PRN IVP Nausea & Vomiting 07/04/20 14:30 08/03/20 14:29 Polyethylene Glycol (Miralax) 17 gm DAILYPRN PRN ORAL Constipation 07/04/20 14:30 08/03/20 14:29 Tamsulosin HCl (Flomax) 0.4 mg BEDTIME ORAL 07/05/20 21:00 08/04/20 20:59 Temazepam (Restoril) 15 mg HSPRN PRN ORAL Insomnia 07/04/20 14:30 07/11/20 14:29 Vancomycin HCl 250 ml @ 166.667 mls/hr Q24H IVPB 07/05/20 22:00 07/10/20 21:59 Vancomycin HCl (Vanco pharmacy to dose) 1 ea DAILY PRN MISC PER RX PROTOCOL 07/04/20 18:45 08/03/20 18:44 Allergies: Coded Allergies: No Known Allergies (Unverified , 10/11/18) Subjective awake, alert, responsive denies any chest pain or shortness of breath, complained about suprapubic fullness, WBC 25.7. Objective Last Vital Signs Date Time Temp Pulse Resp B/P (MAP) Pulse Ox O2 Delivery O2 Flow Rate FiO2 07/05/20 15:59 97.9 81 16 118/67 (84) 96 07/04/20 21:00 Room Air Laboratory Tests Test 07/05/20 10:10 White Blood Count 25.7 K/UL (4.8-10.8) *H Red Blood Count 4.91 M/UL (4.70-6.10) Hemoglobin 15.4 G/DL (14.2-18.0) Hematocrit 44.6 % (42.0-52.0) Mean Corpuscular Volume 91 FL (80-99) Mean Corpuscular Hemoglobin 31.3 PG (27.0-31.0) H Mean Corpuscular Hemoglobin Concent 34.5 G/DL (32.0-36.0) Red Cell Distribution Width 13.4 % (11.6-14.8) Platelet Count 146 K/UL (150-450) L Mean Platelet Volume 12.2 FL (6.5-10.1) H Neutrophils (%) (Auto) % (45.0-75.0) Lymphocytes (%) (Auto) % (20.0-45.0) Monocytes (%) (Auto) % (1.0-10.0) Eosinophils (%) (Auto) % (0.0-3.0) Basophils (%) (Auto) % (0.0-2.0) Differential Total Cells Counted 100 Neutrophils % (Manual) 87 % (45-75) H Lymphocytes % (Manual) 8 % (20-45) L Monocytes % (Manual) 4 % (1-10) Eosinophils % (Manual) 1 % (0-3) Basophils % (Manual) 0 % (0-2) Band Neutrophils 0 % (0-8) Platelet Estimate Decreased L Platelet Morphology Normal Red Blood Cell Morphology Normal Sodium Level 134 MMOL/L (136-145) L Potassium Level 3.9 MMOL/L (3.5-5.1) Chloride Level 101 MMOL/L (98-107) Carbon Dioxide Level 27 MMOL/L (21-32) Anion Gap 6 mmol/L (5-15) Blood Urea Nitrogen 19 mg/dL (7-18) H Creatinine 1.2 MG/DL (0.55-1.30) Estimat Glomerular Filtration Rate > 60 mL/min (>60) Glucose Level 129 MG/DL (74-106) H Calcium Level 8.6 MG/DL (8.5-10.1) Total Bilirubin 0.6 MG/DL (0.2-1.0) Aspartate Amino Transf (AST/SGOT) 21 U/L (15-37) Alanine Aminotransferase (ALT/SGPT) 23 U/L (12-78) Alkaline Phosphatase 70 U/L (46-116) Total Protein 6.4 G/DL (6.4-8.2) Albumin 2.5 G/DL (3.4-5.0) L Globulin 3.9 g/dL Albumin/Globulin Ratio 0.6 (1.0-2.7) L Microbiology Date/Time Source Procedure Growth Status 07/04/20 08:11 Nasopharynx SARS-CoV-2 RdRp Gene Assay - Final Complete 07/04/20 05:30 Urine,Clean Catch Urine Culture - Preliminary Gram Negative Brady Resulted 07/04/20 05:30 Blood Blood Culture - Preliminary Resulted 07/04/20 05:15 Blood Blood Culture - Preliminary Resulted Intake and Output 07/04/20 07/05/20 19:00 07:00 Intake Total 300 ml 350 ml Output Total 600 ml 850 ml Balance -300 ml -500 ml Intake Oral 300 ml 350 ml Output Urine Total 600 ml 850 ml Objective General: No acute distress, awake and alert HEENT: NCAT, sclera anicteric, PERRL, EOMI. Neck: Supple, no significant jugular venous distention, Lungs: Good inspiratory effort, no accessory muscle use, clear to auscultation bilaterally, no Wheeze or Rales. Heart: Regular rate and rhythm, normal S1/S2, no murmurs/gallops Abdomen: soft, nontender, nondistended. Normoactive bowel sounds, suprapubic tenderness. / Rectal: Refused and deferred. Extremities: No Cyanosis , clubbing or edema. Neuro: A&O x 3, Able to move all extremities Skin: warm, no rashes or lesions Psych: Normal mood and affect Assessment/Plan Assessment/Plan sepsis secondary to gram- negative brady UTI Urinary retention BPH Plan: Abx: vancomycin IV, cefepime IV follow-up with laboratory and culture in a.m. DVT prophylaxis: Heparin subcu CODE STATUS: Full code On Flomax. Yinka Lorenzo MD Jul 05, 2020 18:57
--- NOTE | 2020-07-05 19:26 | NUR ---
NURSE HAND-OFF: Important Events on Shift:Critical Value WBC 25.7 Patient Status: stable Diet: regular Pending Orders: Labs in AM Pending Results/Labs: CRP CBC CMP MG PHOS SED 07/06 Pending MD notification:none Latest Vital Signs: Temperature 98.7 , Pulse 88 , B/P 134 /74 , Respiratory Rate 18 , O2 SAT 95 , Room Air, O2 Flow Rate . Vital Sign Comment: none Latest Oropeza Fall Score: 20 Fall Risk: Low Risk Safety Measures: Call light Within Reach, Bed Alarm , Side Rails Side Rails x2, Bed position Low and Locked. Fall Precautions: Yellow Socks Door Sign Patient Fall Education Report given to Angel PATEL.
--- NOTE | 2020-07-05 19:40 | NUR ---
NURSE NOTES: Pt received from AMANDA Antonio alert and oriented x4 with no acute s/s of distress noted. IV site asymptomatic and patent on L ac 20g, saline lock. Tijer[place] catheter draining to clear and yellow urine. On room air. Bed in lowest position, call light and belongings within reach.
[2020-07-05 20:00] VITALS: BP 134/74
[2020-07-05] MEDS: Tamsulosin 0.4mg cap ORAL SCH (20:09)
--- NOTE | 2020-07-05 21:15 | History and Physical Report ---
DATE OF ADMISSION: 07/04/2020 CHIEF COMPLAINT: Urinary retention. HISTORY OF PRESENT ILLNESS: This is a 65-year-old gentleman with past medical history significant for BPH who presented to the emergency department complaining about difficulty urinating with urinary retention since last night. Patient was last seen by urologist about 3 months ago who started him on Flomax due to the enlarged prostate with increased urinary urgency, difficulty voiding. Patient denies any nausea, vomiting, fever, chills, back pain, or saddle anesthesia. Shortly after initial evaluation in the emergency department, patient was noted to have WBC of 13.5 and subsequently patient was admitted to the hospital with sepsis secondary to urinary tract infection. PAST MEDICAL HISTORY/PAST SURGICAL HISTORY: BPH. Denies any past surgical history. MEDICATIONS AT HOME: Flomax. SOCIAL HISTORY: Denies any smoking, alcohol, or drugs. FAMILY HISTORY: Noncontributory. REVIEW OF SYSTEMS: Mostly as above. Denies any dysuria, frequency, hematuria. Complained about difficulty urinating. Denies any hemoptysis or hematochezia. Denies any bright red blood per rectum. PHYSICAL EXAMINATION: VITAL SIGNS: On admission from the emergency department, temperature 100.9, pulse of 101, respirations 18, blood pressure 111/58. GENERAL: Patient is awake, responsive, in no acute distress. HEAD AND NECK: Pupils equal and reactive to light. Extraocular movements intact. Neck was supple. No JVD. LUNGS: Good air entry with no wheezing or rales. HEART: S1, S2. Regular rhythm. No murmurs or gallops. ABDOMEN: Soft, nondistended. Tenderness over the suprapubic area. No rebound tenderness. No fluid shift. EXTREMITIES: No cyanosis, clubbing, or edema. NEUROLOGIC: Cranial nerves II through XII grossly intact. Motor is 5/5 in all extremities. Gait is intact. RECTAL: Deferred. GENITOURINARY: Deferred. LABORATORY DATA: On admission, WBC of 13, hemoglobin 15, hematocrit 47, platelets 177. Sodium 136, potassium 4.2, chloride 102, bicarb 27, BUN 20, creatinine 1.3, glucose is 147. Lactic acid is 1.4. PT of 11, INR 1.1. UA +3 protein, negative leukocytes, +2 ketone, positive nitrite, +3 leukocytes, many bacteria. Patient had a CT scan of the abdomen and pelvis done shows enlarged prostate measuring 5.2 x 6.7 x 5.2, mild stranding about prostate and bilateral seminal vessels, bilateral peripheral stranding similar in prior examination. No hydronephrosis was noted. No renal or ureteral stone. ASSESSMENT: 1. Sepsis secondary to urinary tract infection. 2. BPH. 3. Urinary retention. PLAN: Admit patient to medical floor. We will follow up with Dr. Yung from Pulmonary Critical Care and Dr. More Cardenas from Infectious Disease. Broad-spectrum antibiotic with cefepime. Follow up with culture. Code status is Full Code. DVT prophylaxis, heparin subcutaneous. We will continue on Flomax. Yinka Lorenzo M.D. DR: CAS JOB#: [id number] CC:
[2020-07-05] MEDS: Vancomycin 1.25gm/250ml Premix IVPB SCH (22:05)
[2020-07-06] VITALS: BP 113/69
--- NOTE | 2020-07-06 01:15 | NUR ---
HAND-OFF: Report given to AMANDA Montejo. Plan of care endorsed. Pt c/o of headache at 1999, given Tylenol PRN for headache relief. VS Stable.
--- NOTE | 2020-07-06 01:20 | NUR ---
NURSE NOTES: Receive a report from Angel PATEL.
--- NOTE | 2020-07-06 02:10 | NUR ---
NURSE NOTES: Pt is asleep without acute distress. Straw color urine is patent via ribeiro catheter. Will continue to monitor.
[2020-07-06 04:00] VITALS: BP 120/74
[2020-07-06 05:41] LABS: HEMATOCRIT 43.8 % (42.0-52.0); HEMOGLOBIN 15.5 G/DL (14.2-18.0); MEAN CORPUSCULAR VOLUME 88 FL (80-99); PLATELET COUNT 148 K/UL (150-450); RED CELL DISTRIBUTION WIDTH 14.7 % (11.6-14.8); WHITE BLOOD COUNT 21.1 K/UL (4.8-10.8)
[2020-07-06 06:01] LABS: ALANINE AMINOTRANSFERASE 23 U/L (12-78); ALBUMIN 2.3 G/DL (3.4-5.0); ALBUMIN/GLOBULIN RATIO 0.6 (1.0-2.7); ALKALINE PHOSPHATASE 69 U/L (46-116); ANION GAP 6 mmol/L (5-15); ASPARTATE AMINO TRANSFERASE 19 U/L (15-37); BILIRUBIN,TOTAL 0.6 MG/DL (0.2-1.0); BLOOD UREA NITROGEN 14 mg/dL (7-18); CALCIUM 8.3 MG/DL (8.5-10.1); CARBON DIOXIDE 28 MMOL/L (21-32); CHLORIDE 104 MMOL/L (98-107); CREATININE 1.2 MG/DL (0.55-1.30); PHOSPHORUS 2.9 MG/DL (2.5-4.9); POTASSIUM 3.8 MMOL/L (3.5-5.1); SODIUM 138 MMOL/L (136-145)
--- NOTE | 2020-07-06 06:47 | NUR ---
NURSE HAND-OFF: Important Events on Shift: pain during movement, Relieved CARLSON, Afebrile, No BM overnight Patient Status: [stable] Diet: [regular] 12hr urine output via ribeiro: 1640ml Pending Orders: [] Pending Results/Labs:[] Pending MD notification:[] Latest Vital Signs: Temperature 98.2 , Pulse 70 , B/P 120 /74 , Respiratory Rate 17 , O2 SAT 97 , Room Air, O2 Flow Rate . Vital Sign Comment: [] Latest Oropeza Fall Score: 20 Fall Risk: Low Risk Safety Measures: Call light Within Reach, Bed Alarm , Side Rails Side Rails x2, Bed position Low and Locked. Fall Precautions: Yellow Socks Door Sign Patient Fall Education
--- NOTE | 2020-07-06 07:45 | NUR ---
HAND-OFF: Report given to AMANDA Dias. Round is made.
[2020-07-06 08:00] VITALS: BP 115/71
--- NOTE | 2020-07-06 08:28 | NUR ---
NURSE NOTES: Received report from AMANDA Montejo. Pt alert and oriented x4, on RA, no acute s/s of distress noted. Denied pain at this time. IV site asymptomatic and patent. Tijer[place] catheter patent and draining to clear and yellow urine. Bed in lowest position, call light within reach. Will continue to monitor.
[2020-07-06] MEDS: Cefepime HCl 2 GM in NS 110 ML IV SCH ×2 (08:55→21:03)
[2020-07-06] MEDS: Heparin 5000 units/ml inj SUBQ SCH ×2 (08:58→21:02)
[2020-07-06 12:00] VITALS: BP 129/71
--- NOTE | 2020-07-06 12:59 | NUR ---
CASE MANAGEMENT:REVIEW 07/06/20 SI: SEPSIS. UTI. BPH 98.2 77 17 115/71 97% ON RA WBC+21.1 IS: IV VANCOMYCIN Q24 IV CEFEPIME Q12 HEPARIN SQ Q12 FLOMAX PO QHS : MED/SURG STATUS DCP: FROM HOME
--- NOTE | 2020-07-06 13:45 | Pulmonology Progress Note ---
Subjective Constitutional: Reports: no symptoms HEENT: Repors: no symptoms Allergies: Coded Allergies: No Known Allergies (Unverified , 10/11/18) Objective Last 24 Hour Vital Signs Date Time Temp Pulse Resp B/P (MAP) Pulse Ox O2 Delivery O2 Flow Rate FiO2 07/06/20 12:00 99.2 75 17 129/71 (90) 96 07/06/20 09:00 Room Air 07/06/20 08:00 98.2 77 17 115/71 (86) 97 07/06/20 04:00 98.2 70 17 120/74 (89) 97 07/06/20 00:00 97.9 76 17 113/69 (84) 97 07/05/20 21:00 Room Air 07/05/20 20:00 98.7 88 18 134/74 (94) 95 07/05/20 15:59 97.9 81 16 118/67 (84) 96 Intake and Output 07/05/20 07/06/20 19:00 07:00 Intake Total 2060 ml 620 ml Output Total 2225 ml 1640 ml Balance -165 ml -1020 ml Intake Oral 2060 ml 400 ml IV Total 220 ml Output Urine Total 2225 ml 1640 ml # Bowel Movements 5 General Appearance: WD/WN Respiratory: chest wall non-tender, normal breath sounds Cardiovascular: normal peripheral pulses, normal rate Abdomen: normal bowel sounds, soft, non tender Extremities: no cyanosis Skin: no lesions Neurologic: no motor/sensory deficits Microbiology Date/Time Source Procedure Growth Status 07/05/20 16:10 Stool Clostridium difficile Toxin Assay - Final Complete 07/04/20 08:11 Nasopharynx SARS-CoV-2 RdRp Gene Assay - Final Complete 07/04/20 05:30 Urine,Clean Catch Urine Culture - Final Escherichia Coli Complete 07/04/20 05:30 Blood Blood Culture - Preliminary Gram Negative Brady Resulted 07/04/20 05:15 Blood Blood Culture - Preliminary Gram Negative Brady Resulted Laboratory Tests 07/06/20 05:15: White Blood Count 21.1H, Red Blood Count 5.00, Hemoglobin 15.5, Hematocrit 43.8, Mean Corpuscular Volume 88, Mean Corpuscular Hemoglobin 31.0, Mean Corpuscular Hemoglobin Concent 35.4, Red Cell Distribution Width 14.7, Platelet Count 148L, Mean Platelet Volume 11.9H, Neutrophils (%) (Auto) , Lymphocytes (%) (Auto) , Monocytes (%) (Auto) , Eosinophils (%) (Auto) , Basophils (%) (Auto) , Differential Total Cells Counted 100, Neutrophils % (Manual) 80H, Lymphocytes % (Manual) 14L, Monocytes % (Manual) 5, Eosinophils % (Manual) 1, Basophils % (Manual) 0, Band Neutrophils 0, Platelet Estimate DecreasedL, Platelet Morphology Normal, Anisocytosis 1+, Erythrocyte Sedimentation Rate 25H, Sodium Level 138, Potassium Level 3.8, Chloride Level 104, Carbon Dioxide Level 28, Anion Gap 6, Blood Urea Nitrogen 14, Creatinine 1.2, Estimat Glomerular Filtr ation Rate > 60, Glucose Level 115H, Calcium Level 8.3L, Phosphorus Level 2.9, Magnesium Level 1.9, Total Bilirubin 0.6, Aspartate Amino Transf (AST/SGOT) 19, Alanine Aminotransferase (ALT/SGPT) 23, Alkaline Phosphatase 69, C-Reactive Protein, Quantitative 28.3H, Total Protein 6.4, Albumin 2.3L, Globulin 4.1, Albumin/Globulin Ratio 0.6L Current Medications Medications (Trade) Dose Ordered Sig/Jane Route PRN Reason Start Time Stop Time Status Last Admin Dose Admin Acetaminophen (Tylenol) 650 mg Q4H PRN ORAL fever 07/04/20 14:30 08/03/20 14:29 07/05/20 20:11 Albuterol/ Ipratropium (Albuterol/ Ipratropium) 3 ml Q4H PRN HHN Shortness of Breath 07/04/20 14:30 07/09/20 14:29 Cefepime HCl 2 gm/ Sodium Chloride 110 ml @ 220 mls/hr EVERY 12 HOURS IV 07/04/20 21:00 07/11/20 20:59 07/06/20 08:55 Heparin Sodium (Porcine) (Heparin 5000 units/ml) 5,000 units EVERY 12 HOURS SUBQ 07/04/20 21:00 08/18/20 20:59 07/06/20 08:58 Morphine Sulfate (Morphine Sulfate) 2 mg Q4H PRN IVP For Pain 07/04/20 20:45 07/11/20 20:44 07/04/20 21:44 Ondansetron HCl (Zofran) 4 mg Q6H PRN IVP Nausea & Vomiting 07/04/20 14:30 08/03/20 14:29 Polyethylene Glycol (Miralax) 17 gm DAILYPRN PRN ORAL Constipation 07/04/20 14:30 08/03/20 14:29 Tamsulosin HCl (Flomax) 0.4 mg BEDTIME ORAL 07/05/20 21:00 08/04/20 20:59 07/05/20 20:09 Temazepam (Restoril) 15 mg HSPRN PRN ORAL Insomnia 07/04/20 14:30 07/11/20 14:29 Vancomycin HCl 250 ml @ 166.667 mls/hr Q24H IVPB 07/05/20 22:00 07/10/20 21:59 07/05/20 22:05 Vancomycin HCl (Vanco pharmacy to dose) 1 ea DAILY PRN MISC PER RX PROTOCOL 07/04/20 18:45 08/03/20 18:44 Assessment/Plan Problems: (1) Sepsis (2) Prostate hypertrophy (3) BPH (benign prostatic hyperplasia) Assessment/Plan cultures reviewed iv fluids IV abx check electrolytes will need Urology evaluation. Charlene Yung MD Jul 06, 2020 13:45
[2020-07-06 16:00] VITALS: BP 129/70
--- NOTE | 2020-07-06 18:05 | Internal Med Progress Note ---
Subjective Date of Service: Jul 06, 2020 Physician Name Richard Hernandez Attending Physician Yinka Lorenzo MD Current Medications Medications (Trade) Dose Ordered Sig/Jane Route PRN Reason Start Time Stop Time Status Last Admin Dose Admin Acetaminophen (Tylenol) 650 mg Q4H PRN ORAL fever 07/04/20 14:30 08/03/20 14:29 07/05/20 20:11 Albuterol/ Ipratropium (Albuterol/ Ipratropium) 3 ml Q4H PRN HHN Shortness of Breath 07/04/20 14:30 07/09/20 14:29 Cefepime HCl 2 gm/ Sodium Chloride 110 ml @ 220 mls/hr EVERY 12 HOURS IV 07/04/20 21:00 07/11/20 20:59 07/06/20 08:55 Heparin Sodium (Porcine) (Heparin 5000 units/ml) 5,000 units EVERY 12 HOURS SUBQ 07/04/20 21:00 08/18/20 20:59 07/06/20 08:58 Morphine Sulfate (Morphine Sulfate) 2 mg Q4H PRN IVP For Pain 07/04/20 20:45 07/11/20 20:44 07/04/20 21:44 Ondansetron HCl (Zofran) 4 mg Q6H PRN IVP Nausea & Vomiting 07/04/20 14:30 08/03/20 14:29 Polyethylene Glycol (Miralax) 17 gm DAILYPRN PRN ORAL Constipation 07/04/20 14:30 08/03/20 14:29 Tamsulosin HCl (Flomax) 0.4 mg BEDTIME ORAL 07/05/20 21:00 08/04/20 20:59 07/05/20 20:09 Temazepam (Restoril) 15 mg HSPRN PRN ORAL Insomnia 07/04/20 14:30 07/11/20 14:29 Vancomycin HCl 250 ml @ 166.667 mls/hr Q24H IVPB 07/05/20 22:00 07/10/20 21:59 07/05/20 22:05 Vancomycin HCl (Vanco pharmacy to dose) 1 ea DAILY PRN MISC PER RX PROTOCOL 07/04/20 18:45 08/03/20 18:44 Allergies: Coded Allergies: No Known Allergies (Unverified , 10/11/18) ROS Limited/Unobtainable: No Constitutional: Reports: no symptoms HEENT: Reports: no symptoms Cardiovascular: Reports: no symptoms Respiratory: Reports: no symptoms Gastrointestinal/Abdominal: Reports: no symptoms Genitourinary: Reports: no symptoms Neurologic/Psychiatric: Reports: no symptoms Subjective 65 YO M wih history of BPH, admitted with Urinary obstruction. Now pyel onephritis and sepsis. Cover for Int [facility]-Dr Lorenzo Objective Last Vital Signs Date Time Temp Pulse Resp B/P (MAP) Pulse Ox O2 Delivery O2 Flow Rate FiO2 07/06/20 16:00 99.0 67 17 129/70 (89) 98 07/06/20 09:00 Room Air Laboratory Tests Test 07/06/20 05:15 White Blood Count 21.1 K/UL (4.8-10.8) H Red Blood Count 5.00 M/UL (4.70-6.10) Hemoglobin 15.5 G/DL (14.2-18.0) Hematocrit 43.8 % (42.0-52.0) Mean Corpuscular Volume 88 FL (80-99) Mean Corpuscular Hemoglobin 31.0 PG (27.0-31.0) Mean Corpuscular Hemoglobin Concent 35.4 G/DL (32.0-36.0) Red Cell Distribution Width 14.7 % (11.6-14.8) Platelet Count 148 K/UL (150-450) L Mean Platelet Volume 11.9 FL (6.5-10.1) H Neutrophils (%) (Auto) % (45.0-75.0) Lymphocytes (%) (Auto) % (20.0-45.0) Monocytes (%) (Auto) % (1.0-10.0) Eosinophils (%) (Auto) % (0.0-3.0) Basophils (%) (Auto) % (0.0-2.0) Differential Total Cells Counted 100 Neutrophils % (Manual) 80 % (45-75) H Lymphocytes % (Manual) 14 % (20-45) L Monocytes % (Manual) 5 % (1-10) Eosinophils % (Manual) 1 % (0-3) Basophils % (Manual) 0 % (0-2) Band Neutrophils 0 % (0-8) Platelet Estimate Decreased L Platelet Morphology Normal Anisocytosis 1+ Erythrocyte Sedimentation Rate 25 MM/HR (0-20) H Sodium Level 138 MMOL/L (136-145) Potassium Level 3.8 MMOL/L (3.5-5.1) Chloride Level 104 MMOL/L (98-107) Carbon Dioxide Level 28 MMOL/L (21-32) Anion Gap 6 mmol/L (5-15) Blood Urea Nitrogen 14 mg/dL (7-18) Creatinine 1.2 MG/DL (0.55-1.30) Estimat Glomerular Filtration Rate > 60 mL/min (>60) Glucose Level 115 MG/DL (74-106) H Calcium Level 8.3 MG/DL (8.5-10.1) L Phosphorus Level 2.9 MG/DL (2.5-4.9) Magnesium Level 1.9 MG/DL (1.8-2.4) Total Bilirubin 0.6 MG/DL (0.2-1.0) Aspartate Amino Transf (AST/SGOT) 19 U/L (15-37) Alanine Aminotransferase (ALT/SGPT) 23 U/L (12-78) Alkaline Phosphatase 69 U/L (46-116) C-Reactive Protein, Quantitative 28.3 mg/dL (0.00-0.90) H Total Protein 6.4 G/DL (6.4-8.2) Albumin 2.3 G/DL (3.4-5.0) L Globulin 4.1 g/dL Albumin/Globulin Ratio 0.6 (1.0-2.7) L Microbiology Date/Time Source Procedure Growth Status 07/05/20 16:10 Stool Clostridium difficile Toxin Assay - Final Complete 07/04/20 08:11 Nasopharynx SARS-CoV-2 RdRp Gene Assay - Final Complete 07/04/20 05:30 Urine,Clean Catch Urine Culture - Final Escherichia Coli Complete 07/04/20 05:30 Blood Blood Culture - Preliminary Gram Negative Brady Resulted 07/04/20 05:15 Blood Blood Culture - Preliminary Gram Negative Brady Resulted Intake and Output 07/05/20 07/06/20 19:00 07:00 Intake Total 2060 ml 620 ml Output Total 2225 ml 1640 ml Balance -165 ml -1020 ml Intake Oral 2060 ml 400 ml IV Total 220 ml Output Urine Total 2225 ml 1640 ml # Bowel Movements 5 Objective PHYSICAL EXAMINATION: GENERAL: Patient is awake, responsive, in no acute distress. HEAD AND NECK: Pupils equal and reactive to light. Extraocular movements intact. Neck was supple. No JVD. LUNGS: Good air entry with no wheezing or rales. HEART: S1, S2. Regular rhythm. No murmurs or gallops. ABDOMEN: Soft, nondistended. Tenderness over the suprapubic area. No rebound tenderness. No fluid shift. EXTREMITIES: No cyanosis, clubbing, or edema. NEUROLOGIC: Cranial nerves II through XII grossly intact. Motor is 5/5 in all extremities. Gait is intact. RECTAL: Deferred. GENITOURINARY: Deferred. Assessment/Plan Assessment/Plan Assessment/Plan Assessment/Plan Assessment/Plan sepsis=gram neg brady UTI=E. Coli Urinary retention BPH Plan: Abx: vancomycin IV, cefepime IV follow-up with laboratory and culture in a.m. DVT prophylaxis: Heparin subcu CODE STATUS: Full code On Flomax. Richard Hernandez MD Jul 06, 2020 18:05
--- NOTE | 2020-07-06 18:37 | NUR ---
NURSE NOTES: Pt reported loose stool, dark brown. Instructed pt to let nurse know when pt has bm and do not flush before nurse see. Pt verbalized understanding.
--- NOTE | 2020-07-06 19:25 | NUR ---
NURSE HAND-OFF: Important Events on Shift:[pt reported dark loose stool.] Patient Status: [stable] Diet: [reg] Pending Orders: [] Pending Results/Labs:[] Pending MD notification:[] Latest Vital Signs: Temperature 99.0 , Pulse 67 , B/P 129 /70 , Respiratory Rate 17 , O2 SAT 98 , Room Air, O2 Flow Rate . Vital Sign Comment: [stable] Latest [place] Fall Score: 20 Fall Risk: Low Risk Safety Measures: Call light Within Reach, Bed Alarm , Side Rails Side Rails x2, Bed position Low and Locked. Fall Precautions: Yellow Socks Door Sign Patient Fall Education Report given to [AMANDA Mendosa].
[2020-07-06 19:48] VITALS: BP 134/74
--- NOTE | 2020-07-06 19:53 | NUR ---
NURSE NOTES: patient resting in bed not in any pain or discomfort.
[2020-07-06] MEDS: Tamsulosin 0.4mg cap ORAL SCH (21:01)
[2020-07-06] MEDS: Vancomycin 1.25gm/250ml Premix IVPB SCH (22:17)
[2020-07-07] VITALS: BP 121/70
[2020-07-07 04:00] VITALS: BP 128/74
--- NOTE | 2020-07-07 06:44 | NUR ---
NURSE HAND-OFF: Important Events on Shift:[] patient slept well no episode of any loose stool , no discomfort for the night Patient Status: [] stable Diet: [] regular Pending Orders: [] none Pending Results/Labs:[] none Pending MD notification:[] none Latest Vital Signs: Temperature 98.1 , Pulse 67 , B/P 128 /74 , Respiratory Rate 18 , O2 SAT 98 , Room Air, O2 Flow Rate . Vital Sign Comment: [] Latest [place]peza Fall Score: 20 Fall Risk: Low Risk Safety Measures: Call light Within Reach, Bed Alarm , Side Rails Side Rails x2, Bed position Low and Locked. Fall Precautions: Yellow Socks Door Sign Patient Fall Education Report given to []. Addendum: 07/07/20 at 0728 by Navya Liriano RN report given to luther [email or web address]
--- NOTE | 2020-07-07 07:30 | NUR ---
NURSE NOTES: Patient lying in bed awake. No complain of pain or distress at this time. Skin intact and dry. [place] catheter patent and draining well. IV dressing intact and dry. Bed lowest position. Call light within reach. Will continue to monitor.
[2020-07-07 08:00] VITALS: BP 118/68
[2020-07-07] MEDS: Cefepime HCl 2 GM in NS 110 ML IV SCH (08:26)
[2020-07-07] MEDS: Heparin 5000 units/ml inj SUBQ SCH ×2 (08:36→20:22)
[2020-07-07 09:49] LABS: BASOPHILS % (AUTO) 0.8 % (0.0-2.0); EOSINOPHILS % (AUTO) 1.1 % (0.0-3.0); HEMOGLOBIN 15.3 G/DL (14.2-18.0); LYMPHOCYTES % (AUTO) 15.2 % (20.0-45.0); MEAN CORPUSCULAR VOLUME 89 FL (80-99); MONOCYTES % (AUTO) 11.9 % (1.0-10.0); PLATELET COUNT 200 K/UL (150-450); RED BLOOD COUNT 4.94 M/UL (4.70-6.10); RED CELL DISTRIBUTION WIDTH 13.4 % (11.6-14.8); WHITE BLOOD COUNT 11.3 K/UL (4.8-10.8)
[2020-07-07 10:17] LABS: ANION GAP 6 mmol/L (5-15); BLOOD UREA NITROGEN 12 mg/dL (7-18); CALCIUM 8.4 MG/DL (8.5-10.1); CARBON DIOXIDE 29 MMOL/L (21-32); CHLORIDE 104 MMOL/L (98-107); CREATININE 0.9 MG/DL (0.55-1.30); POTASSIUM 3.5 MMOL/L (3.5-5.1); SODIUM 139 MMOL/L (136-145)
--- NOTE | 2020-07-07 10:45 | Infectious Diseases Prog Note ---
Assessment/Plan 65yo M with: Febrile to 102, Sp Sepsis Leukocytosis to 31, improving EColi bacteremia likely 2/2 urinary source, pyelo UTI BL perinephric stranding, likely pyelonephritis 07/04 BCx +Ecoli UA+, UCx + EColi COVID rapid test neg CT A/P: Enlarged prostate measuring 5.2 x 6.7 x 5.4 cm with encroachment into bladder base. Mild stranding about the prostate and bilateral seminal vesicles, correlate for infection. Bilateral perinephric stranding, similar to prior exam, may be due to chronic medical renal disease. Correlate with clinical findings and lab values to exclude pyelonephritis. No hydronephrosis. No renal or ureteral stones on this contrast-enhanced study. Cdiff : eng FORREST vs CKD, Cr 1.3 BPH Plan: De-escalate AB Rx to Rocephin # 1/7 DC cefepime #4 DC vanco #4 empiric for now, if cx remain neg for GPCs will stop soon Monitor CBC/CMP Monitor temp curve, hemodynamics Monitor resp status D/w RN Thank you for this consult. [facility] will continue to follow Subjective Constitutional: Denies: no symptoms, fever, chills, fatigue, anorexia, drenching sweats, other Allergies: Coded Allergies: No Known Allergies (Unverified , 10/11/18) Objective Last 24 Hour Vital Signs Date Time Temp Pulse Resp B/P (MAP) Pulse Ox O2 Delivery O2 Flow Rate FiO2 07/07/20 08:00 98.0 75 18 118/68 (85) 96 07/07/20 04:00 98.1 128/74 (92) 07/07/20 00:00 98.3 121/70 (87) 07/06/20 21:00 Room Air 07/06/20 21:00 Room Air 07/06/20 19:48 98.1 18 134/74 (94) 07/06/20 18:36 Room Air 07/06/20 16:00 99.0 67 17 129/70 (89) 98 07/06/20 12:00 99.2 75 17 129/71 (90) 96 Height (Feet): 5 Height (Inches): 7.00 Weight (Pounds): 175 HEENT: atraumatic Respiratory/Chest: normal breath sounds Cardiovascular: regular rhythm Microbiology Date/Time Source Procedure Growth Status 07/05/20 16:10 Stool Clostridium difficile Toxin Assay - Final Complete Laboratory Tests Test 07/07/20 09:35 White Blood Count 11.3 K/UL (4.8-10.8) H Red Blood Count 4.94 M/UL (4.70-6.10) Hemoglobin 15.3 G/DL (14.2-18.0) Hematocrit 44.0 % (42.0-52.0) Mean Corpuscular Volume 89 FL (80-99) Mean Corpuscular Hemoglobin 31.1 PG (27.0-31.0) H Mean Corpuscular Hemoglobin Concent 34.9 G/DL (32.0-36.0) Red Cell Distribution Width 13.4 % (11.6-14.8) Platelet Count 200 K/UL (150-450) Mean Platelet Volume 11.5 FL (6.5-10.1) H Neutrophils (%) (Auto) 71.0 % (45.0-75.0) Lymphocytes (%) (Auto) 15.2 % (20.0-45.0) L Monocytes (%) (Auto) 11.9 % (1.0-10.0) H Eosinophils (%) (Auto) 1.1 % (0.0-3.0) Basophils (%) (Auto) 0.8 % (0.0-2.0) Sodium Level 139 MMOL/L (136-145) Potassium Level 3.5 MMOL/L (3.5-5.1) Chloride Level 104 MMOL/L (98-107) Carbon Dioxide Level 29 MMOL/L (21-32) Anion Gap 6 mmol/L (5-15) Blood Urea Nitrogen 12 mg/dL (7-18) Creatinine 0.9 MG/DL (0.55-1.30) Estimat Glomerular Filtration Rate > 60 mL/min (>60) Glucose Level 137 MG/DL (74-106) H Calcium Level 8.4 MG/DL (8.5-10.1) L Current Medications Medications (Trade) Dose Ordered Sig/Jane Route PRN Reason Start Time Stop Time Status Last Admin Dose Admin Acetaminophen (Tylenol) 650 mg Q4H PRN ORAL fever 07/04/20 14:30 08/03/20 14:29 07/05/20 20:11 Albuterol/ Ipratropium (Albuterol/ Ipratropium) 3 ml Q4H PRN HHN Shortness of Breath 07/04/20 14:30 07/09/20 14:29 Cefepime HCl 2 gm/ Sodium Chloride 110 ml @ 220 mls/hr EVERY 12 HOURS IV 07/04/20 21:00 07/11/20 20:59 07/07/20 08:26 Heparin Sodium (Porcine) (Heparin 5000 units/ml) 5,000 units EVERY 12 HOURS SUBQ 07/04/20 21:00 08/18/20 20:59 07/07/20 08:36 Morphine Sulfate (Morphine Sulfate) 2 mg Q4H PRN IVP For Pain 07/04/20 20:45 07/11/20 20:44 07/04/20 21:44 Ondansetron HCl (Zofran) 4 mg Q6H PRN IVP Nausea & Vomiting 07/04/20 14:30 08/03/20 14:29 Polyethylene Glycol (Miralax) 17 gm DAILYPRN PRN ORAL Constipation 07/04/20 14:30 08/03/20 14:29 Tamsulosin HCl (Flomax) 0.4 mg BEDTIME ORAL 07/05/20 21:00 08/04/20 20:59 07/06/20 21:01 Temazepam (Restoril) 15 mg HSPRN PRN ORAL Insomnia 07/04/20 14:30 07/11/20 14:29 Vancomycin HCl 250 ml @ 166.667 mls/hr Q24H IVPB 07/05/20 22:00 07/10/20 21:59 07/06/20 22:17 Vancomycin HCl (Vanco pharmacy to dose) 1 ea DAILY PRN MISC PER RX PROTOCOL 07/04/20 18:45 08/03/20 18:44 Jai Chacko MD Jul 07, 2020 10:45
[2020-07-07 12:00] VITALS: BP 127/73
--- NOTE | 2020-07-07 14:16 | NUR ---
CASE MANAGEMENT:REVIEW 07/07/20 SI: E COLI SEPSIS. UTI. BACTEREMIA. BPH 98.3 64 18 127/73 98% ON RA WBC+11.3 IS: IV ROCEPHIN Q24 HEPARIN SQ Q12 FLOMAX PO QHS : MED/SURG STATUS DCP: FROM HOME
--- NOTE | 2020-07-07 14:18 | Pulmonology Progress Note ---
Subjective ROS Limited/Unobtainable: No Constitutional: Denies: no symptoms, fever, chills, fatigue, anorexia, drenching sweats, other HEENT: Repors: no symptoms Allergies: Coded Allergies: No Known Allergies (Unverified , 10/11/18) Objective Last 24 Hour Vital Signs Date Time Temp Pulse Resp B/P (MAP) Pulse Ox O2 Delivery O2 Flow Rate FiO2 07/07/20 12:00 98.3 64 18 127/73 (91) 98 07/07/20 09:00 Room Air 07/07/20 08:00 98.0 75 18 118/68 (85) 96 07/07/20 04:00 98.1 128/74 (92) 07/07/20 00:00 98.3 121/70 (87) 07/06/20 21:00 Room Air 07/06/20 21:00 Room Air 07/06/20 19:48 98.1 18 134/74 (94) 07/06/20 18:36 Room Air 07/06/20 16:00 99.0 67 17 129/70 (89) 98 Intake and Output 07/06/20 07/07/20 19:00 07:00 Intake Total 700 ml 480 ml Output Total 1500 ml 1000 ml Balance -800 ml -520 ml Intake Oral 700 ml 480 ml Output Urine Total 1500 ml 1000 ml General Appearance: WD/WN Respiratory: chest wall non-tender, normal breath sounds Cardiovascular: normal peripheral pulses, normal rate Abdomen: normal bowel sounds, soft, non tender Extremities: no cyanosis Skin: no lesions Neurologic: no motor/sensory deficits Microbiology Date/Time Source Procedure Growth Status 07/05/20 16:10 Stool Clostridium difficile Toxin Assay - Final Complete Laboratory Tests 07/07/20 09:35: White Blood Count 11.3H, Red Blood Count 4.94, Hemoglobin 15.3, Hematocrit 44.0, Mean Corpuscular Volume 89, Mean Corpuscular Hemoglobin 31.1H, Mean Corpuscular Hemoglobin Concent 34.9, Red Cell Distribution Width 13.4, Platelet Count 200, Mean Platelet Volume 11.5H, Neutrophils (%) (Auto) 71.0, Lymphocytes (%) (Auto) 15.2L, Monocytes (%) (Auto) 11.9H, Eosinophils (%) (Auto) 1.1, Basophils (%) (Auto) 0.8, Sodium Level 139, Potassium Level 3.5, Chloride Level 104, Carbon Dioxide Level 29, Anion Gap 6, Blood Urea Nitrogen 12, Creatinine 0.9, Estimat Glomerular Filtration Rate > 60, Glucose Level 137H, Calcium Level 8.4L Current Medications Medications (Trade) Dose Ordered Sig/Jane Route PRN Reason Start Time Stop Time Status Last Admin Dose Admin Acetaminophen (Tylenol) 650 mg Q4H PRN ORAL fever 07/04/20 14:30 08/03/20 14:29 07/05/20 20:11 Albuterol/ Ipratropium (Albuterol/ Ipratropium) 3 ml Q4H PRN HHN Shortness of Breath 07/04/20 14:30 07/09/20 14:29 Ceftriaxone Sodium 1 gm/ Dextrose 55 ml @ 110 mls/hr Q24H IVPB 07/07/20 21:00 07/14/20 20:59 Heparin Sodium (Porcine) (Heparin 5000 units/ml) 5,000 units EVERY 12 HOURS SUBQ 07/04/20 21:00 08/18/20 20:59 07/07/20 08:36 Morphine Sulfate (Morphine Sulfate) 2 mg Q4H PRN IVP For Pain 07/04/20 20:45 07/11/20 20:44 07/04/20 21:44 Ondansetron HCl (Zofran) 4 mg Q6H PRN IVP Nausea & Vomiting 07/04/20 14:30 08/03/20 14:29 Polyethylene Glycol (Miralax) 17 gm DAILYPRN PRN ORAL Constipation 07/04/20 14:30 08/03/20 14:29 Tamsulosin HCl (Flomax) 0.4 mg BEDTIME ORAL 07/05/20 21:00 08/04/20 20:59 07/06/20 21:01 Temazepam (Restoril) 15 mg HSPRN PRN ORAL Insomnia 07/04/20 14:30 07/11/20 14:29 Assessment/Plan Problems: (1) Sepsis (2) Prostate hypertrophy (3) BPH (benign prostatic hyperplasia) Assessment/Plan getting better cultures reviewed iv fluids IV abx check electrolytes will need Urology evaluation. Charlene Yung MD Jul 07, 2020 14:18
--- NOTE | 2020-07-07 14:40 | Internal Med Progress Note ---
Subjective Date of Service: Jul 07, 2020 Physician Name Richard Hernandez Attending Physician Yinka Lorenzo MD Current Medications Medications (Trade) Dose Ordered Sig/Jane Route PRN Reason Start Time Stop Time Status Last Admin Dose Admin Acetaminophen (Tylenol) 650 mg Q4H PRN ORAL fever 07/04/20 14:30 08/03/20 14:29 07/05/20 20:11 Albuterol/ Ipratropium (Albuterol/ Ipratropium) 3 ml Q4H PRN HHN Shortness of Breath 07/04/20 14:30 07/09/20 14:29 Ceftriaxone Sodium 1 gm/ Dextrose 55 ml @ 110 mls/hr Q24H IVPB 07/07/20 21:00 07/14/20 20:59 Heparin Sodium (Porcine) (Heparin 5000 units/ml) 5,000 units EVERY 12 HOURS SUBQ 07/04/20 21:00 08/18/20 20:59 07/07/20 08:36 Morphine Sulfate (Morphine Sulfate) 2 mg Q4H PRN IVP For Pain 07/04/20 20:45 07/11/20 20:44 07/04/20 21:44 Ondansetron HCl (Zofran) 4 mg Q6H PRN IVP Nausea & Vomiting 07/04/20 14:30 08/03/20 14:29 Polyethylene Glycol (Miralax) 17 gm DAILYPRN PRN ORAL Constipation 07/04/20 14:30 08/03/20 14:29 Tamsulosin HCl (Flomax) 0.4 mg BEDTIME ORAL 07/05/20 21:00 08/04/20 20:59 07/06/20 21:01 Temazepam (Restoril) 15 mg HSPRN PRN ORAL Insomnia 07/04/20 14:30 07/11/20 14:29 Allergies: Coded Allergies: No Known Allergies (Unverified , 10/11/18) ROS Limited/Unobtainable: No Constitutional: Reports: no symptoms HEENT: Reports: no symptoms Cardiovascular: Reports: no symptoms Respiratory: Reports: no symptoms Gastrointestinal/Abdominal: Reports: no symptoms Genitourinary: Reports: no symptoms Neurologic/Psychiatric: Reports: no symptoms Subjective 65 YO M wih history of BPH, admitted with Urinary obstruction. Now p yelonephritis and sepsis. Cover for Int Med-Dr Lorenzo Objective Last Vital Signs Date Time Temp Pulse Resp B/P (MAP) Pulse Ox O2 Delivery O2 Flow Rate FiO2 07/07/20 12:00 98.3 64 18 127/73 (91) 98 07/07/20 09:00 Room Air Laboratory Tests Test 07/07/20 09:35 White Blood Count 11.3 K/UL (4.8-10.8) H Red Blood Count 4.94 M/UL (4.70-6.10) Hemoglobin 15.3 G/DL (14.2-18.0) Hematocrit 44.0 % (42.0-52.0) Mean Corpuscular Volume 89 FL (80-99) Mean Corpuscular Hemoglobin 31.1 PG (27.0-31.0) H Mean Corpuscular Hemoglobin Concent 34.9 G/DL (32.0-36.0) Red Cell Distribution Width 13.4 % (11.6-14.8) Platelet Count 200 K/UL (150-450) Mean Platelet Volume 11.5 FL (6.5-10.1) H Neutrophils (%) (Auto) 71.0 % (45.0-75.0) Lymphocytes (%) (Auto) 15.2 % (20.0-45.0) L Monocytes (%) (Auto) 11.9 % (1.0-10.0) H Eosinophils (%) (Auto) 1.1 % (0.0-3.0) Basophils (%) (Auto) 0.8 % (0.0-2.0) Sodium Level 139 MMOL/L (136-145) Potassium Level 3.5 MMOL/L (3.5-5.1) Chloride Level 104 MMOL/L (98-107) Carbon Dioxide Level 29 MMOL/L (21-32) Anion Gap 6 mmol/L (5-15) Blood Urea Nitrogen 12 mg/dL (7-18) Creatinine 0.9 MG/DL (0.55-1.30) Estimat Glomerular Filtration Rate > 60 mL/min (>60) Glucose Level 137 MG/DL (74-106) H Calcium Level 8.4 MG/DL (8.5-10.1) L Microbiology Date/Time Source Procedure Growth Status 07/05/20 16:10 Stool Clostridium difficile Toxin Assay - Final Complete Intake and Output 07/06/20 07/07/20 19:00 07:00 Intake Total 700 ml 480 ml Output Total 1500 ml 1000 ml Balance -800 ml -520 ml Intake Oral 700 ml 480 ml Output Urine Total 1500 ml 1000 ml Objective PHYSICAL EXAMINATION: GENERAL: Patient is awake, responsive, in no acute distress. HEAD AND NECK: Pupils equal and reactive to light. Extraocular movements intact. Neck was supple. No JVD. LUNGS: Good air entry with no wheezing or rales. HEART: S1, S2. Regular rhythm. No murmurs or gallops. ABDOMEN: Soft, nondistended. Tenderness over the suprapubic area. No rebound tenderness. No fluid shift. EXTREMITIES: No cyanosis, clubbing, or edema. NEUROLOGIC: Cranial nerves II through XII grossly intact. Motor is 5/5 in all extremities. Gait is intact. RECTAL: Deferred. GENITOURINARY: Deferred. Assessment/Plan Assessment/Plan Assessment/Plan Assessment/Plan Assessment/Plan sepsis=E. Coli UTI=E. Coli Urinary retention BPH Plan: Abx: ceftriaxone IV follow-up with laboratory and culture in a.m. DVT prophylaxis: Heparin subcu CODE STATUS: Full code On Flomax. Richard Hernandez MD Jul 07, 2020 14:40
[2020-07-07 16:00] VITALS: BP 146/74
--- NOTE | 2020-07-07 19:30 | NUR ---
NURSE HAND-OFF: Important Events on Shift:N/A Patient Status: Stable Diet: Regular Pending Orders: N/A Pending Results/Labs:CBC, CMP, Mg on 07/08 Pending MD notification:N/A Latest Vital Signs: Temperature 98.3 , Pulse 57 , B/P 146 /74 , Respiratory Rate 18 , O2 SAT 98 , Room Air, O2 Flow Rate . Vital Sign Comment: Stable Latest Oropeza Fall Score: 35 Fall Risk: Medium Risk Safety Measures: Call light Within Reach, Bed Alarm , Side Rails Side Rails x2, Bed position Low and Locked. Fall Precautions: Yellow Socks Door Sign Patient Fall Education Report given to Ann RN and Josesito RN. Patient in stable condition.
--- NOTE | 2020-07-07 19:45 | NUR ---
NURSE NOTES: Received report from David PATEL. Patient is awake, alert, and oriented x4. On room air, breathing is even and unlabored with no distress noted. No c/o pain. Tijer[place] catheter intact and draining well. IV left AC sailing lock with no bleeding noted. Bed low and locked. Call light within reach.
[2020-07-07 20:00] VITALS: BP 138/74
[2020-07-07] MEDS: cefTRIAXone 1 GM in D5W 55 ML IVPB SCH (20:21)
[2020-07-07] MEDS: Tamsulosin 0.4mg cap ORAL SCH (20:22)
[2020-07-08] VITALS: BP 117/68
[2020-07-08 04:00] VITALS: BP 123/66
[2020-07-08 07:04] LABS: BASOPHILS % (AUTO) 0.7 % (0.0-2.0); EOSINOPHILS % (AUTO) 2.3 % (0.0-3.0); HEMATOCRIT 48.7 % (42.0-52.0); HEMOGLOBIN 16.5 G/DL (14.2-18.0); LYMPHOCYTES % (AUTO) 23.3 % (20.0-45.0); MEAN CORPUSCULAR VOLUME 92 FL (80-99); MONOCYTES % (AUTO) 11.7 % (1.0-10.0); NEUTROPHILS % (AUTO) 62.1 % (45.0-75.0); PLATELET COUNT 226 K/UL (150-450); RED BLOOD COUNT 5.29 M/UL (4.70-6.10); RED CELL DISTRIBUTION WIDTH 13.2 % (11.6-14.8); WHITE BLOOD COUNT 12.2 K/UL (4.8-10.8)
--- NOTE | 2020-07-08 07:36 | NUR ---
NURSE HAND-OFF: Important Events on Shift:[uneventful] Patient Status: [stable] Diet: [Regular] Pending Orders: [] Pending Results/Labs:[] Pending MD notification:[] Latest Vital Signs: Temperature 98.1 , Pulse 62 , B/P 123 /66 , Respiratory Rate 18 , O2 SAT 93 , Room Air, O2 Flow Rate . Vital Sign Comment: [] Latest Oropeza Fall Score: 35 Fall Risk: Medium Risk Safety Measures: Call light Within Reach, Bed Alarm , Side Rails Side Rails x2, Bed position Low and Locked. Fall Precautions: Yellow Socks Door Sign Patient Fall Education Report given to [MIRELLA ALMAZAN RN].
--- NOTE | 2020-07-08 07:40 | NUR ---
NURSE NOTES: Received report from AMANDA Bellamy. Rounding done with outgoing nurse. Pt a/o x 4, in bed. No SOB noted. Denies any pain at this time. Lt AC IV access is in placed. Tijerina catheter is in placed. Bed in lowest position, call light within reach. Will continue to monitor.
[2020-07-08 07:48] LABS: ALANINE AMINOTRANSFERASE 117 U/L (12-78); ALBUMIN 2.7 G/DL (3.4-5.0); ALBUMIN/GLOBULIN RATIO 0.6 (1.0-2.7); ALKALINE PHOSPHATASE 77 U/L (46-116); ANION GAP 7 mmol/L (5-15); ASPARTATE AMINO TRANSFERASE 91 U/L (15-37); BILIRUBIN,TOTAL 0.6 MG/DL (0.2-1.0); BLOOD UREA NITROGEN 15 mg/dL (7-18); CALCIUM 8.9 MG/DL (8.5-10.1); CARBON DIOXIDE 30 MMOL/L (21-32); CHLORIDE 103 MMOL/L (98-107); CREATININE 1.1 MG/DL (0.55-1.30); PHOSPHORUS 3.5 MG/DL (2.5-4.9); POTASSIUM 3.7 MMOL/L (3.5-5.1); SODIUM 140 MMOL/L (136-145)
[2020-07-08 08:00] VITALS: BP 125/71
[2020-07-08] MEDS: Heparin 5000 units/ml inj SUBQ SCH ×2 (08:18→20:28)
--- NOTE | 2020-07-08 08:34 | Infectious Diseases Prog Note ---
Assessment/Plan 65yo M with: Febrile to 102, Sp Sepsis Leukocytosis to 31, improving E. coli bacteremia likely 2/2 urinary source, pyelo UTI BL perinephric stranding, likely pyelonephritis 07/04 BCx +E. coli (jimenez-S) UA+, UCx + E. coli COVID rapid test neg CT A/P: Enlarged prostate measuring 5.2 x 6.7 x 5.4 cm with encroachment into bladder base. Mild stranding about the prostate and bilateral seminal vesicles, correlate for infection. Bilateral perinephric stranding, similar to prior exam, may be due to chronic medical renal disease. Correlate with clinical findings and lab values to exclude pyelonephritis. No hydronephrosis. No renal or ureteral stones on this contrast-enhanced study. FORREST vs CKD, Cr 1.3, improving R/o C.dif, neg 07/05 BPH Plan: Cont CTX 1g IV daily #2/7 in house On discharge, can transition to levofloxacin 750mg PO daily to complete rest of course Trend WBC, improving 07/07 SP vanco #4, cefepime #4 Monitor CBC/CMP Monitor temp curve, hemodynamics Monitor resp status D/w RN Thank you for this consult. [facility] will continue to follow Subjective Allergies: Coded Allergies: No Known Allergies (Unverified , 10/11/18) AF WBC 12, improving NAD on RA Feels well Objective Last 24 Hour Vital Signs Date Time Temp Pulse Resp B/P (MAP) Pulse Ox O2 Delivery O2 Flow Rate FiO2 07/08/20 04:00 98.1 62 18 123/66 (85) 93 07/08/20 00:00 98.6 65 18 117/68 (84) 96 07/07/20 21:00 Room Air 07/07/20 20:00 98.2 57 18 138/74 (95) 96 07/07/20 16:00 98.3 57 18 146/74 (98) 98 07/07/20 12:00 98.3 64 18 127/73 (91) 98 07/07/20 09:00 Room Air Height (Feet): 5 Height (Inches): 7.00 Weight (Pounds): 175 Gen: NAD in bed HEENT: NCAT, EOMI, PERRL CV: RRR Pulm: CTAB Abd: Soft, NTND Ext: No c/c/e Neuro: Awake, alert, interactive Microbiology Date/Time Source Procedure Growth Status 07/05/20 16:10 Stool Clostridium difficile Toxin Assay - Final Complete Laboratory Tests Test 07/07/20 09:35 07/08/20 05:00 White Blood Count 11.3 K/UL (4.8-10.8) H 12.2 K/UL (4.8-10.8) H Red Blood Count 4.94 M/UL (4.70-6.10) 5.29 M/UL (4.70-6.10) Hemoglobin 15.3 G/DL (14.2-18.0) 16.5 G/DL (14.2-18.0) Hematocrit 44.0 % (42.0-52.0) 48.7 % (42.0-52.0) Mean Corpuscular Volume 89 FL (80-99) 92 FL (80-99) Mean Corpuscular Hemoglobin 31.1 PG (27.0-31.0) H 31.2 PG (27.0-31.0) H Mean Corpuscular Hemoglobin Concent 34.9 G/DL (32.0-36.0) 33.9 G/DL (32.0-36.0) Red Cell Distribution Width 13.4 % (11.6-14.8) 13.2 % (11.6-14.8) Platelet Count 200 K/UL (150-450) 226 K/UL (150-450) Mean Platelet Volume 11.5 FL (6.5-10.1) H 10.3 FL (6.5-10.1) H Neutrophils (%) (Auto) 71.0 % (45.0-75.0) 62.1 % (45.0-75.0) Lymphocytes (%) (Auto) 15.2 % (20.0-45.0) L 23.3 % (20.0-45.0) Monocytes (%) (Auto) 11.9 % (1.0-10.0) H 11.7 % (1.0-10.0) H Eosinophils (%) (Auto) 1.1 % (0.0-3.0) 2.3 % (0.0-3.0) Basophils (%) (Auto) 0.8 % (0.0-2.0) 0.7 % (0.0-2.0) Sodium Level 139 MMOL/L (136-145) 140 MMOL/L (136-145) Potassium Level 3.5 MMOL/L (3.5-5.1) 3.7 MMOL/L (3.5-5.1) Chloride Level 104 MMOL/L (98-107) 103 MMOL/L (98-107) Carbon Dioxide Level 29 MMOL/L (21-32) 30 MMOL/L (21-32) Anion Gap 6 mmol/L (5-15) 7 mmol/L (5-15) Blood Urea Nitrogen 12 mg/dL (7-18) 15 mg/dL (7-18) Creatinine 0.9 MG/DL (0.55-1.30) 1.1 MG/DL (0.55-1.30) Estimat Glomerular Filtration Rate > 60 mL/min (>60) > 60 mL/min (>60) Glucose Level 137 MG/DL (74-106) H 105 MG/DL (74-106) Calcium Level 8.4 MG/DL (8.5-10.1) L 8.9 MG/DL (8.5-10.1) Erythrocyte Sedimentation Rate Pending Phosphorus Level 3.5 MG/DL (2.5-4.9) Magnesium Level 1.9 MG/DL (1.8-2.4) Total Bilirubin 0.6 MG/DL (0.2-1.0) Aspartate Amino Transf (AST/SGOT) 91 U/L (15-37) H Alanine Aminotransferase (ALT/SGPT) 117 U/L (12-78) H Alkaline Phosphatase 77 U/L (46-116) C-Reactive Protein, Quantitative 8.4 mg/dL (0.00-0.90) H Total Protein 7.3 G/DL (6.4-8.2) Albumin 2.7 G/DL (3.4-5.0) L Globulin 4.6 g/dL Albumin/Globulin Ratio 0.6 (1.0-2.7) L Current Medications Medications (Trade) Dose Ordered Sig/Jane Route PRN Reason Start Time Stop Time Status Last Admin Dose Admin Acetaminophen (Tylenol) 650 mg Q4H PRN ORAL fever 07/04/20 14:30 08/03/20 14:29 07/05/20 20:11 Albuterol/ Ipratropium (Albuterol/ Ipratropium) 3 ml Q4H PRN HHN Shortness of Breath 07/04/20 14:30 07/09/20 14:29 Ceftriaxone Sodium 1 gm/ Dextrose 55 ml @ 110 mls/hr Q24H IVPB 07/07/20 21:00 07/14/20 20:59 07/07/20 20:21 Heparin Sodium (Porcine) (Heparin 5000 units/ml) 5,000 units EVERY 12 HOURS SUBQ 07/04/20 21:00 08/18/20 20:59 07/08/20 08:18 Morphine Sulfate (Morphine Sulfate) 2 mg Q4H PRN IVP For Pain 07/04/20 20:45 07/11/20 20:44 07/04/20 21:44 Ondansetron HCl (Zofran) 4 mg Q6H PRN IVP Nausea & Vomiting 07/04/20 14:30 08/03/20 14:29 Polyethylene Glycol (Miralax) 17 gm DAILYPRN PRN ORAL Constipation 07/04/20 14:30 08/03/20 14:29 Tamsulosin HCl (Flomax) 0.4 mg BEDTIME ORAL 07/05/20 21:00 08/04/20 20:59 07/07/20 20:22 Temazepam (Restoril) 15 mg HSPRN PRN ORAL Insomnia 07/04/20 14:30 07/11/20 14:29 More Cardenas M.D. Jul 08, 2020 08:34
[2020-07-08 12:00] VITALS: BP 120/71
--- NOTE | 2020-07-08 13:50 | NUR ---
CASE MANAGEMENT:REVIEW SI; E COLI SEPSIS. UTI. BACTEREMIA. BPH. 98.6 57 18 138/74 93% ON RA WBC 12.2 AST 91 ALT 117 ALB 2.7 IS;ROCEPHIN IV QD FLOMAX PO HS HEPARIN SQ Q12 MED SURG STATUS DCP;FROM HOME PLAN; UROLOGY CONSULT PENDING
[2020-07-08 16:00] VITALS: BP 134/78
[2020-07-08] MEDS ORDERED: ASPIRIN81 MG ORAL (16:00)
--- NOTE | 2020-07-08 18:55 | NUR ---
NURSE HAND-OFF: Important Events on Shift:No new event Patient Status: stable Diet: regular Pending Orders: n/a Pending Results/Labs:n/a Pending MD notification:n/a Latest Vital Signs: Temperature 98.0 , Pulse 63 , B/P 134 /78 , Respiratory Rate 18 , O2 SAT 98 , Room Air, O2 Flow Rate . Vital Sign Comment: stable Latest Oropeza Fall Score: 35 Fall Risk: Medium Risk Safety Measures: Call light Within Reach, Bed Alarm , Side Rails Side Rails x2, Bed position Low and Locked. Fall Precautions: Yellow Socks Door Sign Patient Fall Education Report given to AMANDA Bellamy.
--- NOTE | 2020-07-08 18:59 | Internal Med Progress Note ---
Subjective Date of Service: Jul 08, 2020 Physician Name Richard Hernandez Attending Physician Yinka Lorenzo MD Current Medications Medications (Trade) Dose Ordered Sig/Jane Route PRN Reason Start Time Stop Time Status Last Admin Dose Admin Acetaminophen (Tylenol) 650 mg Q4H PRN ORAL fever 07/04/20 14:30 08/03/20 14:29 07/05/20 20:11 Albuterol/ Ipratropium (Albuterol/ Ipratropium) 3 ml Q4H PRN HHN Shortness of Breath 07/04/20 14:30 07/09/20 14:29 Ceftriaxone Sodium 1 gm/ Dextrose 55 ml @ 110 mls/hr Q24H IVPB 07/07/20 21:00 07/14/20 20:59 07/07/20 20:21 Heparin Sodium (Porcine) (Heparin 5000 units/ml) 5,000 units EVERY 12 HOURS SUBQ 07/04/20 21:00 08/18/20 20:59 07/08/20 08:18 Morphine Sulfate (Morphine Sulfate) 2 mg Q4H PRN IVP For Pain 07/04/20 20:45 07/11/20 20:44 07/04/20 21:44 Ondansetron HCl (Zofran) 4 mg Q6H PRN IVP Nausea & Vomiting 07/04/20 14:30 08/03/20 14:29 Polyethylene Glycol (Miralax) 17 gm DAILYPRN PRN ORAL Constipation 07/04/20 14:30 08/03/20 14:29 Tamsulosin HCl (Flomax) 0.4 mg BEDTIME ORAL 07/05/20 21:00 08/04/20 20:59 07/07/20 20:22 Temazepam (Restoril) 15 mg HSPRN PRN ORAL Insomnia 07/04/20 14:30 07/11/20 14:29 Allergies: Coded Allergies: No Known Allergies (Unverified , 10/11/18) ROS Limited/Unobtainable: No Constitutional: Reports: no symptoms HEENT: Reports: no symptoms Cardiovascular: Reports: no symptoms Respiratory: Reports: no symptoms Gastrointestinal/Abdominal: Reports: no symptoms Genitourinary: Reports: no symptoms Neurologic/Psychiatric: Reports: no symptoms Subjective 65 YO M wih history of BPH, admitted with Urinary obstruction. Now pyelonephritis and sepsis. Cover for Int Med-Dr Lorenzo Objective Last Vital Signs Date Time Temp Pulse Resp B/P (MAP) Pulse Ox O2 Delivery O2 Flow Rate FiO2 07/08/20 16:00 98.0 63 18 134/78 (96) 98 07/08/20 09:00 Room Air Laboratory Tests Test 07/08/20 05:00 White Blood Count 12.2 K/UL (4.8-10.8) H Red Blood Count 5.29 M/UL (4.70-6.10) Hemoglobin 16.5 G/DL (14.2-18.0) Hematocrit 48.7 % (42.0-52.0) Mean Corpuscular Volume 92 FL (80-99) Mean Corpuscular Hemoglobin 31.2 PG (27.0-31.0) H Mean Corpuscular Hemoglobin Concent 33.9 G/DL (32.0-36.0) Red Cell Distribution Width 13.2 % (11.6-14.8) Platelet Count 226 K/UL (150-450) Mean Platelet Volume 10.3 FL (6.5-10.1) H Neutrophils (%) (Auto) 62.1 % (45.0-75.0) Lymphocytes (%) (Auto) 23.3 % (20.0-45.0) Monocytes (%) (Auto) 11.7 % (1.0-10.0) H Eosinophils (%) (Auto) 2.3 % (0.0-3.0) Basophils (%) (Auto) 0.7 % (0.0-2.0) Erythrocyte Sedimentation Rate 16 MM/HR (0-20) Sodium Level 140 MMOL/L (136-145) Potassium Level 3.7 MMOL/L (3.5-5.1) Chloride Level 103 MMOL/L (98-107) Carbon Dioxide Level 30 MMOL/L (21-32) Anion Gap 7 mmol/L (5-15) Blood Urea Nitrogen 15 mg/dL (7-18) Creatinine 1.1 MG/DL (0.55-1.30) Estimat Glomerular Filtration Rate > 60 mL/min (>60) Glucose Level 105 MG/DL (74-106) Calcium Level 8.9 MG/DL (8.5-10.1) Phosphorus Level 3.5 MG/DL (2.5-4.9) Magnesium Level 1.9 MG/DL (1.8-2.4) Total Bilirubin 0.6 MG/DL (0.2-1.0) Aspartate Amino Transf (AST/SGOT) 91 U/L (15-37) H Alanine Aminotransferase (ALT/SGPT) 117 U/L (12-78) H Alkaline Phosphatase 77 U/L (46-116) C-Reactive Protein, Quantitative 8.4 mg/dL (0.00-0.90) H Total Protein 7.3 G/DL (6.4-8.2) Albumin 2.7 G/DL (3.4-5.0) L Globulin 4.6 g/dL Albumin/Globulin Ratio 0.6 (1.0-2.7) L Intake and Output 07/07/20 07/08/20 19:00 07:00 Intake Total 800 ml 535 ml Output Total 1900 ml 800 ml Balance -1100 ml -265 ml Intake Oral 800 ml 480 ml IV Total 55 ml Output Urine Total 1900 ml 800 ml # Bowel Movements 1 Objective PHYSICAL EXAMINATION: GENERAL: Patient is awake, responsive, in no acute distress. HEAD AND NECK: Pupils equal and reactive to light. Extraocular movements intact. Neck was supple. No JVD. LUNGS: Good air entry with no wheezing or rales. HEART: S1, S2. Regular rhythm. No murmurs or gallops. ABDOMEN: Soft, nondistended. Tenderness over the suprapubic area. No rebound tenderness. No fluid shift. EXTREMITIES: No cyanosis, clubbing, or edema. NEUROLOGIC: Cranial nerves II through XII grossly intact. Motor is 5/5 in all extremities. Gait is intact. RECTAL: Deferred. GENITOURINARY: Deferred. Assessment/Plan Assessment/Plan Assessment/Plan Assessment/Plan Assessment/Plan sepsis=E. Coli UTI=E. Coli Urinary retention BPH Plan: Abx: ceftriaxone IV D# 2/7; Levaquin on discharge DVT prophylaxis: Heparin subcu CODE STATUS: Full code On Flomax. Richard Hernandez MD Jul 08, 2020 18:59
--- NOTE | 2020-07-08 19:49 | NUR ---
NURSE NOTES: Received report from Toshia PATEL. Patient is awake, alert, and oriented x4. On room air, breathing is even and unlabored. No c/o pain. [place] with yellow jennie foul odor urine draining well. IV left AC sailing lock with no bleeding noted. Bed low and locked. Call light within reach.
[2020-07-08 20:00] VITALS: BP 133/78
[2020-07-08] MEDS: Tamsulosin 0.4mg cap ORAL SCH (20:27)
[2020-07-08] MEDS: cefTRIAXone 1 GM in D5W 55 ML IVPB SCH (20:29)
[2020-07-08] MEDS: Morphine Sulfate 2mg/ml Inj(IV/IM USE ONLY) IVP PRN (23:08)
--- NOTE | 2020-07-08 23:45 | NUR ---
NURSE NOTES: Patient complained of headache 8/10 pain. Morphine given per order. Patient is asleep now.
[2020-07-09] VITALS: BP 135/75
[2020-07-09 04:00] VITALS: BP 123/66
[2020-07-09 06:27] LABS: BASOPHILS % (AUTO) 1.3 % (0.0-2.0); EOSINOPHILS % (AUTO) 2.3 % (0.0-3.0); HEMATOCRIT 47.2 % (42.0-52.0); HEMOGLOBIN 16.8 G/DL (14.2-18.0); LYMPHOCYTES % (AUTO) 13.5 % (20.0-45.0); MEAN CORPUSCULAR VOLUME 88 FL (80-99); MONOCYTES % (AUTO) 11.8 % (1.0-10.0); NEUTROPHILS % (AUTO) 71.2 % (45.0-75.0); PLATELET COUNT 239 K/UL (150-450); RED BLOOD COUNT 5.37 M/UL (4.70-6.10); RED CELL DISTRIBUTION WIDTH 14.4 % (11.6-14.8); WHITE BLOOD COUNT 13.4 K/UL (4.8-10.8)
[2020-07-09 06:43] LABS: ANION GAP 7 mmol/L (5-15); CALCIUM 8.5 MG/DL (8.5-10.1); CARBON DIOXIDE 30 MMOL/L (21-32); CHLORIDE 102 MMOL/L (98-107); POTASSIUM 3.8 MMOL/L (3.5-5.1); SODIUM 138 MMOL/L (136-145)
--- NOTE | 2020-07-09 07:11 | NUR ---
NURSE HAND-OFF: Important Events on Shift:Pain management Patient Status: Stable Diet: Regular Pending Orders: N/A Pending Results/Labs:N/A Pending MD notification:N/A Latest Vital Signs: Temperature 98.7 , Pulse 67 , B/P 123 /66 , Respiratory Rate 15 , O2 SAT 97 , Room Air, O2 Flow Rate . Vital Sign Comment: VS stable Latest Oropeza Fall Score: 35 Fall Risk: Medium Risk Safety Measures: Call light Within Reach, Bed Alarm , Side Rails Side Rails x2, Bed position Low and Locked. Fall Precautions: Yellow Socks Door Sign Patient Fall Education Report will be given to Tyler PATEL.
[2020-07-09 07:24] LABS: BLOOD UREA NITROGEN 14 mg/dL (7-18)
--- NOTE | 2020-07-09 07:37 | Infectious Diseases Prog Note ---
Assessment/Plan 65yo M with: Febrile to 102, Sp Sepsis Leukocytosis to 31, improving E. coli bacteremia likely 2/2 urinary source, pyelo UTI BL perinephric stranding, likely pyelonephritis 07/04 BCx +E. coli (jimenez-S) UA+, UCx + E. coli COVID rapid test neg CT A/P: Enlarged prostate measuring 5.2 x 6.7 x 5.4 cm with encroachment into bladder base. Mild stranding about the prostate and bilateral seminal vesicles, correlate for infection. Bilateral perinephric stranding, similar to prior exam, may be due to chronic medical renal disease. Correlate with clinical findings and lab values to exclude pyelonephritis. No hydronephrosis. No renal or ureteral stones on this contrast-enhanced study. FORREST vs CKD, Cr 1.3, improving R/o C.dif, neg 07/05 BPH Plan: Cont CTX 1g IV daily #3/-10 in house On discharge, can transition to levofloxacin 750mg PO daily to complete rest of course Ensure Urology evaluation and/or follow-up given BPH/obstruction as presenting issue causing infection Trend WBC, improving 07/07 SP vanco #4, cefepime #4 Monitor CBC/CMP Monitor temp curve, hemodynamics Monitor resp status D/w RN and Dr. Yung Thank you for this consult. [facility] will continue to follow Subjective Allergies: Coded Allergies: No Known Allergies (Unverified , 10/11/18) AF WBC 13, slightly up NAD on RA Objective Last 24 Hour Vital Signs Date Time Temp Pulse Resp B/P (MAP) Pulse Ox O2 Delivery O2 Flow Rate FiO2 07/09/20 04:00 98.7 67 15 123/66 (85) 97 07/09/20 00:00 98.1 64 18 135/75 (95) 97 07/08/20 21:00 Room Air 07/08/20 20:00 98.2 61 18 133/78 (96) 97 07/08/20 16:00 98.0 63 18 134/78 (96) 98 07/08/20 12:00 97.7 70 18 120/71 (87) 96 07/08/20 09:00 Room Air 07/08/20 08:00 97.7 67 18 125/71 (89) 96 Height (Feet): 5 Height (Inches): 7.00 Weight (Pounds): 175 Gen: NAD in bed HEENT: NCAT, EOMI, PERRL CV: RRR Pulm: CTAB Abd: Soft, NTND Ext: No c/c/e Neuro: Awake, alert, interactive Laboratory Tests Test 07/09/20 05:25 White Blood Count 13.4 K/UL (4.8-10.8) H Red Blood Count 5.37 M/UL (4.70-6.10) Hemoglobin 16.8 G/DL (14.2-18.0) Hematocrit 47.2 % (42.0-52.0) Mean Corpuscular Volume 88 FL (80-99) Mean Corpuscular Hemoglobin 31.3 PG (27.0-31.0) H Mean Corpuscular Hemoglobin Concent 35.6 G/DL (32.0-36.0) Red Cell Distribution Width 14.4 % (11.6-14.8) Platelet Count 239 K/UL (150-450) Mean Platelet Volume 9.8 FL (6.5-10.1) Neutrophils (%) (Auto) 71.2 % (45.0-75.0) Lymphocytes (%) (Auto) 13.5 % (20.0-45.0) L Monocytes (%) (Auto) 11.8 % (1.0-10.0) H Eosinophils (%) (Auto) 2.3 % (0.0-3.0) Basophils (%) (Auto) 1.3 % (0.0-2.0) Sodium Level 138 MMOL/L (136-145) Potassium Level 3.8 MMOL/L (3.5-5.1) Chloride Level 102 MMOL/L (98-107) Carbon Dioxide Level 30 MMOL/L (21-32) Anion Gap 7 mmol/L (5-15) Blood Urea Nitrogen Pending Creatinine 1.0 MG/DL (0.55-1.30) Estimat Glomerular Filtration Rate > 60 mL/min (>60) Glucose Level 95 MG/DL (74-106) Calcium Level 8.5 MG/DL (8.5-10.1) Current Medications Medications (Trade) Dose Ordered Sig/Jane Route PRN Reason Start Time Stop Time Status Last Admin Dose Admin Acetaminophen (Tylenol) 650 mg Q4H PRN ORAL fever 07/04/20 14:30 08/03/20 14:29 07/05/20 20:11 Albuterol/ Ipratropium (Albuterol/ Ipratropium) 3 ml Q4H PRN HHN Shortness of Breath 07/04/20 14:30 07/09/20 14:29 Ceftriaxone Sodium 1 gm/ Dextrose 55 ml @ 110 mls/hr Q24H IVPB 07/07/20 21:00 07/14/20 20:59 07/08/20 20:29 Heparin Sodium (Porcine) (Heparin 5000 units/ml) 5,000 units EVERY 12 HOURS SUBQ 07/04/20 21:00 08/18/20 20:59 07/08/20 20:28 Morphine Sulfate (Morphine Sulfate) 2 mg Q4H PRN IVP For Pain 07/04/20 20:45 07/11/20 20:44 07/08/20 23:08 Ondansetron HCl (Zofran) 4 mg Q6H PRN IVP Nausea & Vomiting 07/04/20 14:30 08/03/20 14:29 Polyethylene Glycol (Miralax) 17 gm DAILYPRN PRN ORAL Constipation 07/04/20 14:30 08/03/20 14:29 Tamsulosin HCl (Flomax) 0.4 mg BEDTIME ORAL 07/05/20 21:00 08/04/20 20:59 07/08/20 20:27 Temazepam (Restoril) 15 mg HSPRN PRN ORAL Insomnia 07/04/20 14:30 07/11/20 14:29 More Cardenas M.D. Jul 09, 2020 07:37
[2020-07-09 08:00] VITALS: BP 127/79
--- NOTE | 2020-07-09 08:00 | NUR ---
NURSE NOTES: received report from Gonzalo PATEL, pt a/a/o x4 laying in bed with no signs of distress or other issues at this time. Tijer[place] Cath in place draining well. IV on the left AC gauge#20 heplock. pt is able to ambulate with steady gait. call light within reach, bed in lowest position. call light within reach. I will f/u as needed.
[2020-07-09] MEDS: Heparin 5000 units/ml inj SUBQ SCH (10:06)
[2020-07-09] MEDS ORDERED: LEVOFLOXACIN500 MG ORAL (11:35)
[2020-07-09 12:00] VITALS: BP 131/69
--- NOTE | 2020-07-09 13:57 | NUR ---
CASE MANAGEMENT:REVIEW SI;SEPSIS. BACTEREMIA. PYELONEPHRITIS. 98.7 75 20 135/75 97% ON RA WBC 13.4 IS;ROCEPHIN IV Q24 FLOMAX PO HS MORPHINE V Q4 PRN HEPARIN SQ Q12 MED SURG STATUS DCP;FROM HOME
--- NOTE | 2020-07-09 16:15 | NUR ---
NURSE NOTES: Received order for discharge home with Ribeiro cath in place. discharge instructions and belongings list given to the patient. also teaching in how to care for the ribeiro cath was given. pt was verbalized understanding. extra supplies were given as well. I patient is also aware that need to contact his PCP for further treatment and to be referred with a urologist. per patient his PCP is a Urologist. IV removed prior to d/c. pt left the floor with no signs of distress or other issues at this time. family will provide transportation.
--- NOTE | 2020-07-09 17:37 | Internal Med Progress Note ---
Subjective Date of Service: Jul 09, 2020 Physician Name Richard Hernandez Attending Physician Yinka Loernzo MD Allergies: Coded Allergies: No Known Allergies (Unverified , 10/11/18) ROS Limited/Unobtainable: No Constitutional: Reports: no symptoms HEENT: Reports: no symptoms Cardiovascular: Reports: no symptoms Respiratory: Reports: no symptoms Gastrointestinal/Abdominal: Reports: no symptoms Genitourinary: Reports: no symptoms Neurologic/Psychiatric: Reports: no symptoms Subjective 65 YO M wih history of BPH, admitted with Urinary obstruction. Now pyelonephritis and sepsis. Cover for Int Med-Dr Lorenzo Objective Last Vital Signs Date Time Temp Pulse Resp B/P (MAP) Pulse Ox O2 Delivery O2 Flow Rate FiO2 07/09/20 12:00 98.4 92 20 131/69 (89) 96 07/09/20 09:00 Room Air Laboratory Tests Test 07/09/20 05:25 White Blood Count 13.4 K/UL (4.8-10.8) H Red Blood Count 5.37 M/UL (4.70-6.10) Hemoglobin 16.8 G/DL (14.2-18.0) Hematocrit 47.2 % (42.0-52.0) Mean Corpuscular Volume 88 FL (80-99) Mean Corpuscular Hemoglobin 31.3 PG (27.0-31.0) H Mean Corpuscular Hemoglobin Concent 35.6 G/DL (32.0-36.0) Red Cell Distribution Width 14.4 % (11.6-14.8) Platelet Count 239 K/UL (150-450) Mean Platelet Volume 9.8 FL (6.5-10.1) Neutrophils (%) (Auto) 71.2 % (45.0-75.0) Lymphocytes (%) (Auto) 13.5 % (20.0-45.0) L Monocytes (%) (Auto) 11.8 % (1.0-10.0) H Eosinophils (%) (Auto) 2.3 % (0.0-3.0) Basophils (%) (Auto) 1.3 % (0.0-2.0) Sodium Level 138 MMOL/L (136-145) Potassium Level 3.8 MMOL/L (3.5-5.1) Chloride Level 102 MMOL/L (98-107) Carbon Dioxide Level 30 MMOL/L (21-32) Anion Gap 7 mmol/L (5-15) Blood Urea Nitrogen 14 mg/dL (7-18) Creatinine 1.0 MG/DL (0.55-1.30) Estimat Glomerular Filtration Rate > 60 mL/min (>60) Glucose Level 95 MG/DL (74-106) Calcium Level 8.5 MG/DL (8.5-10.1) Free Prostate Specific Antigen Pending Percent Free Prostate Specific Ag Pending Prostate Specific Antigen Total Pending Intake and Output 07/08/20 07/09/20 19:00 07:00 Intake Total 1000 ml 535 ml Output Total 1600 ml 1000 ml Balance -600 ml -465 ml Intake Oral 1000 ml 480 ml IV Total 55 ml Output Urine Total 1600 ml 1000 ml # Voids 1 Objective PHYSICAL EXAMINATION: GENERAL: Patient is awake, responsive, in no acute distress. HEAD AND NECK: Pupils equal and reactive to light. Extraocular movements intact. Neck was supple. No JVD. LUNGS: Good air entry with no wheezing or rales. HEART: S1, S2. Regular rhythm. No murmurs or gallops. ABDOMEN: Soft, nondistended. Tenderness over the suprapubic area. No rebound tenderness. No fluid shift. EXTREMITIES: No cyanosis, clubbing, or edema. NEUROLOGIC: Cranial nerves II through XII grossly intact. Motor is 5/5 in all extremities. Gait is intact. RECTAL: Deferred. GENITOURINARY: Deferred. Assessment/Plan Assessment/Plan Assessment/Plan Assessment/Plan Assessment/Plan sepsis=E. Coli UTI=E. Coli Urinary retention BPH Plan: Abx: ceftriaxone IV D# 2/7; Levaquin on discharge DVT prophylaxis: Heparin subcu CODE STATUS: Full code On Flomax. D/C home today Richard Hernandez MD Jul 09, 2020 17:37
--- NOTE | 2020-07-11 08:18 | Discharge Summary ---
Discharge Summary Discharge Summary _ DATE OF ADMISSION: 07/04/2020 DATE OF DISCHARGE: 07/09/2020 DISCHARGED BY: Dr. Lorenzo REASON FOR ADMISSION: 65 years old male with past medical history of BPH , presented to emergency department complaining of difficulty urinating and urinary retention since last night. Patient was seen by urologist about 3 months ago and was started on Flomax due to enlarged prostate, increased urinary urgency and difficulty voiding. Patient denied fever or chills. Patient denied back pain or saddle anesthesia. Patient denied nausea and vomiting. Upon evaluation patient had fever 100.9 . Laboratory work-up revealed leukocytosis with WBC 31.5, stable hemoglobin and hematocrit . BUN 20, creatinine 1.3. Lactic acid 1.4. Stable electrolytes. Troponin negative. Urinalysis revealed +3 protein,+3 leukocyte esterase , and findingd grossly consistent with UTI. CT scan of the abdomen pelvis revealed enlarged prostate, measuring 5.2 x 6.7 x 5.4 cm. Mild stranding around the prostate and bilateral seminal vesicles. Bilateral perinephric stranding. No hydronephrosis , no renal or ureteral stones. In the emergency department Tijer[place] catheter was inserted. Patient pancultured , started on the IV fluids , empiric antibiotic , received analgesic and admitted for further management. CONSULTANTS: pulmonary/critical care Dr. Aga DANGELO specialist Dr. Cardenas [facility]: Patient admitted to medical surgical floor. Patient started on IV fluids and empiric antibiotic. DVT prophylaxis provided. Flomax continued. Blood culture revealed E. coli. Urine culture revealed E. coli. Rapid COVID-19 was negative. Repeated blood cultures were negative. Stool for C. difficile was negative. Leukocytosis trended down , fevers resolved. Patient was on IV antibiotic while in the hospital and switched to Levaquin upon discharge to complete the course . Renal parameters and electrolytes were closely monitored, electrolytes corrected as needed, nephrotoxins were avoided; prior to discharge creatinine 1.0, BUN 14. Patient was received instructions on how to care for Tijerina catheter at home. Supplies provided. Patient was made instructed to contact primary care provider for further management and referral to urologist as per her insurance. Patient clinically stabilized and was ready for discharge FINAL DIAGNOSES: Sepsis with E. coli bacteremia due to UTI E. coli UTI/pyelonephritis BPH Urinary retention DISCHARGE MEDICATIONS: See Medication Reconciliation list. DISCHARGE INSTRUCTIONS: Patient was discharged home. Follow-up with a primary care provide with referral to urologist per insurance. I have been assigned to dictate discharge summary for this account. I was not involved in the patient's management. Tri Lakhani NP Jul 11, 2020 08:18
--- NOTE | 2020-07-11 12:46 | NUR ---
[facility] Tele # [phone] ext [phone] MARY Avalos Tele # [phone] ext [phone] [facility] -[facility]- none
== END 2020-07-09 16:15 | disposition home or self-care (01) | DRG 720 ==
LOC: EMR 05:10 → 3E 12:01 → EDBEDREQ 18:07 → EDBEDREQSVC 18:14
DX: A41.51 Sepsis due to Escherichia coli [E. coli] (principal); N39.0 Urinary tract infection, site not specified; N18.9 Chronic kidney disease, unspecified; N40.1 Benign prostatic hyperplasia with lower urinary tract symptoms; N10 Acute pyelonephritis; B96.20 Unspecified Escherichia coli [E. coli] as the cause of diseases classified elsewhere; R33.8 Other retention of urine; N17.9 Acute kidney failure, unspecified
CPT/HCPCS: 36415; 74177; 80048; 80053; 81003; 82248; 83605; 83690; 83735; 84100; 84153; 84154; 84484; 85007; 85025; 85610; 85651; 86140; 87040; 87086; 87181; 87324; 96361; 96365; 96375; 99285; J7030; U0002

== ENCOUNTER 2020-07-12 17:33 | Emergency (ER) | payer MEDICAID ==
[~2020-07-12] VITALS: Ht 172.7 cm; Wt 79.8 kg
[~2020-07-12 17:33] MED LIST changes: +ASPIRIN81 MG ORAL; +FLOMAX0.4 MG ORAL; +LEVOFLOXACIN500 MG ORAL
[2020-07-12 17:40] VITALS: BP 112/65
[2020-07-12 17:58] VITALS: BP 115/67
--- NOTE | 2020-07-12 18:01 | Emergency Room Report ---
History of Present Illness General Chief Complaint: Male Urogenital Problems Present Illness HPI Disclaimer: Please note that this report is being documented using DRAGON technology. This can lead to erroneous entry secondary to incorrect interpretation by the dictating instrument. HPI: 65-year-old male history of BPH and recent UTI presented for Tijerina catheter removal. He had Tijerina catheter placed approximately 1 week ago due to urinary retention. He denies any complaints at this time. No pain no fevers no nausea no vomiting. He has never had a Tijerina catheter in the past. He is followed by urology. 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 Patient History Reviewed Nursing Documentation: PMH: Agreed; PSxH: Agreed Nursing Documentation-PMH Hx Cardiac Problems: No Hx Cancer: No Hx Gastrointestinal Problems: No Hx Neurological Problems: No Review of Systems All Other Systems: negative except mentioned in HPI Physical Exam Vital Signs Date Time Temp Pulse Resp B/P (MAP) Pulse Ox O2 Delivery O2 Flow Rate FiO2 07/12/20 17:36 99.5 92 16 113/71 (85) 99 Room Air Sp02 EP Interpretation: reviewed, normal General Appearance: well appearing, no apparent distress Head: normocephalic, atraumatic Eyes: bilateral eye PERRL, bilateral eye EOMI ENT: hearing grossly normal, moist mucus membranes Neck: full range of motion, supple Respiratory: lungs clear, normal breath sounds, no rhonchi, no respiratory distress, no retraction, no wheezing Cardiovascular #1: normal peripheral pulses, regular rate, rhythm, no murmur Gastrointestinal: non tender, soft, non-distended, no guarding Neurologic: alert, oriented x3, no focal defects Skin: normal color, warm/dry Medical Decision Making Diagnostic Impression: Primary Impression: Encounter for Tijerina catheter removal ER Course Patient presents for Tijerina catheter removal. He has had the Tijerina catheter in 1 week. Tijerina catheter removed in the ER without incident. Patient be discharged home, continue outpatient medications including Flomax. Follow-up with PMD and urology. He was instructed to return if he had any issues with urination. Last Vital Signs Date Time Temp Pulse Resp B/P (MAP) Pulse Ox O2 Delivery O2 Flow Rate FiO2 07/12/20 17:36 99.5 92 16 113/71 (85) 99 Room Air Disposition: HOME, SELF-CARE Condition: Stable Referrals: [facility] Patient Instructions: Benign Prostatic Hyperplasia Additional Instructions: Patient is instructed to follow-up with her primary care doctor, primary care clinic or [facility] in 1 to 2 days. Patient instructed to return for any worsening symptoms or concerns. Edis Weller M.D. Jul 12, 2020 18:01
== END 2020-07-12 18:00 | disposition home or self-care (01) ==
LOC: EMR 18:00
DX: Z46.6 Encounter for fitting and adjustment of urinary device (principal); N40.0 Benign prostatic hyperplasia without lower urinary tract symptoms
CPT/HCPCS: 99282

== ENCOUNTER 2020-07-20 13:35 | Emergency (ER) | payer MEDICAID ==
[~2020-07-20] VITALS: Ht 152.4 cm; Wt 75.3 kg
[2020-07-20 13:39] VITALS: BP 104/75
[2020-07-20 14:25] LABS: APPEARANCE,URINE CLEAR; BILIRUBIN, URINE NEGATIVE (NEGATIVE); GLUCOSE, URINE (UA) NEGATIVE (NEGATIVE); KETONES,URINE NEGATIVE (NEGATIVE); LEUKOCYTE ESTERASE ,URINE 1+ (NEGATIVE); NITRITE,URINE NEGATIVE (NEGATIVE); PH,URINE 5 (4.5-8.0); PROTEIN,URINE 3+ (NEGATIVE); UROBILINOGEN,URINE NORMAL MG/DL (0.0-1.0)
[2020-07-20 14:28] LABS: COLOR,URINE YELLOW
--- NOTE | 2020-07-20 15:49 | Diagnostic Imaging Report ---
EXAM: XR Chest, 1 View CLINICAL HISTORY: SOB TECHNIQUE: Frontal view of the chest. COMPARISON: None FINDINGS: Hardware: None. Lungs/pleura: Lower lung opacities. No pleural effusion or pneumothorax. Mild elevation of the right hemidiaphragm. Heart/mediastinum: Normal. No cardiomegaly. Soft tissues: Unremarkable. Bones: No acute fracture. Degenerative changes of the spine. Upper abdomen: Normal. IMPRESSION: Lower lung opacities may represent an infectious/inflammatory process.
--- NOTE | 2020-07-20 16:03 | Diagnostic Imaging Report ---
EXAM: CT Abdomen and Pelvis Without Intravenous Contrast CLINICAL HISTORY: PAIN TECHNIQUE: Axial computed tomography images of the abdomen and pelvis without intravenous contrast. CTDI is 6.1 mGy and DLP is 348.3 mGy-cm. One or more of the following dose reduction techniques were used: automated exposure control, adjustment of the mA and/or kV according to patient size, use of iterative reconstruction technique. COMPARISON: CT abdomen/pelvis on 07/04/2020 FINDINGS: Lung bases: Patchy ground-glass opacities in the lower lungs, concerning for an infectious/inflammatory process. ABDOMEN: Liver: Unremarkable. Gallbladder and bile ducts: Unremarkable. No calcified stones. No ductal dilation. Pancreas: Unremarkable. No ductal dilation. Spleen: Unremarkable. No splenomegaly. Adrenals: Unremarkable. No mass. Kidneys and ureters: Similar nonspecific bilateral perinephric fat stranding. No hydronephrosis or stone. Stomach and bowel: Diverticulosis without evidence of diverticulitis. No bowel obstruction. PELVIS: Appendix: Normal appendix. Bladder: Prominence of the bladder wall may be secondary to underdistention. Please correlate with urinalysis to evaluate for cystitis. No stones. Reproductive: Prostatomegaly. ABDOMEN and PELVIS: Intraperitoneal space: Unremarkable. No free air. No significant fluid collection. Bones/joints: Degenerative changes of the spine. No acute fracture. No dislocation. Soft tissues: Fat-containing right inguinal hernia. Vasculature: Unremarkable. No abdominal aortic aneurysm. Lymph nodes: Unremarkable. No enlarged lymph nodes. IMPRESSION: 1. Patchy groundglass opacities in the lower lungs, concerning for an infectious/inflammatory process. 2. Prostatomegaly. 3. Prominence of the bladder wall may be secondary to underdistention. Please correlate with urinalysis to evaluate for cystitis. 4. Similar nonspecific bilateral perinephric fat stranding. No hydronephrosis or stone.
--- NOTE | 2020-07-20 16:12 | Emergency Room Report ---
History of Present Illness General Chief Complaint: Back Pain-No Injury Source: Patient Present Illness HPI 65-year-old male with history prostatitis, BPH, and recent removal of Tijerina catheter here complaining of urinary frequency and pain times few days as well as new onset of cough. Denies any chest pain shortness of breath. Denies diarrhea, fever and chills, loss of taste and smell. Has not taken medication for symptom relief. Denies tobacco smoking drug use. Denies hematuria. 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 COVID-19 Screening: Negative COVID-19 COVID-19 Testing Source: clinic Patient History Past Medical History: see triage record Past Surgical History: none Pertinent Family History: none Immunizations: UTD Reviewed Nursing Documentation: PMH: Agreed; PSxH: Agreed Nursing Documentation-PMH Hx Cardiac Problems: No Hx Cancer: No Hx Gastrointestinal Problems: No Hx Neurological Problems: No Review of Systems All Other Systems: negative except mentioned in HPI Physical Exam Vital Signs Date Time Temp Pulse Resp B/P (MAP) Pulse Ox O2 Delivery O2 Flow Rate FiO2 07/20/20 13:39 98.4 84 18 104/75 94 Room Air Sp02 EP Interpretation: reviewed, abnormal - O2 stat 94 General Appearance: no apparent distress, alert, GCS 15, non-toxic Head: normocephalic, atraumatic Eyes: bilateral eye normal inspection, bilateral eye PERRL ENT: hearing grossly normal, no angioedema, normal voice Neck: supple Respiratory: no respiratory distress, no retraction, no accessory muscle use Cardiovascular #1: regular rate, rhythm Gastrointestinal: soft Rectal: deferred Musculoskeletal: back normal Neurologic: alert, motor strength/tone normal, oriented x3, sensory intact, responsive, speech normal Psychiatric: judgement/insight normal, memory normal, mood/affect normal, no suicidal/homicidal ideation Skin: no rash Lymphatic: no adenopathy Medical Decision Making PA Attestation All diagnosis and treatment plans were discussed and reviewed by my supervising physician Dr. Forde Diagnostic Impression: Primary Impression: Prostatitis Additional Impression: COVID-19 virus infection ER Course 65-year-old male with history prostatitis, BPH, and recent removal of Tijerina catheter here complaining of urinary frequency and pain times few days as well as new onset of cough. Denies any chest pain shortness of breath. Denies diarrhea, fever and chills, loss of taste and smell. Has not taken medication for symptom relief. Denies tobacco smoking drug use. Denies hematuria. Ddx considered but are not limited to: bronchitis, PNA, URI viral, bacterial bronchitis, coronavirus Vital signs: are WNL, pt. is afebrile H&PE are most consistent with: COVID-19 infection, prostatitis Vital signs: are WNL, pt. is afebrile ORDERS: UA, chest x-ray, CT abdomen pelvis without contrast, Levaquin, pred nisone ED INTERVENTIONS: None required at this time. DISCHARGE: At this time pt. is stable for d/c to home. Will provide printed patient care instructions, and any necessary prescriptions. Care plan and follow up instructions have been discussed with the patient prior to discharge. Patient to medication as directed, supervised level 2 weeks, if worsening symptoms return to the emergency room. Also follow primary care provider urologist regarding prostatitis. Chest X-Ray Diagnostic Results Chest X-Ray Diagnostic Results : Chest X-Ray Ordered: Yes # of Views/Limited/Complete: 1 View Indication: Other - Cough EP Interpretation: Yes PA Xray: Interpretation reviewed, by supervising MD, and agrees with findings. Interpretation: no effusion, no pneumothorax, other - infiltrates Impression: Other - covid PNA Electronically Signed by: Leonardo Cartagena Text FINDINGS: Hardware: None. Lungs/pleura: Lower lung opacities. No pleural effusion or pneumothorax. Mild elevation of the right hemidiaphragm. Heart/mediastinum: Normal. No cardiomegaly. Soft tissues: Unremarkable. Bones: No acute fracture. Degenerative changes of the spine. Upper abdomen: Normal. IMPRESSION: Lower lung opacities may represent an infectious/inflammatory process. CT/MRI/US Diagnostic Results CT/MRI/US Diagnostic Results : Imaging Test Ordered: CT abdomen pelvis without contrast Impression IMPRESSION: 1. Patchy groundglass opacities in the lower lungs, concerning for an infectious/inflammatory process. 2. Prostatomegaly. 3. Prominence of the bladder wall may be secondary to underdistention. Please correlate with urinalysis to evaluate for cystitis. 4. Similar nonspecific bilateral perinephric fat stranding. No hydronephrosis or stone. Last Vital Signs Date Time Temp Pulse Resp B/P (MAP) Pulse Ox O2 Delivery O2 Flow Rate FiO2 07/20/20 13:39 98.4 84 18 104/75 (85) 94 Room Air Disposition: HOME, SELF-CARE Condition: Stable Scripts Prednisone* (PREDNISONE*) 20 Mg Tablet 40 MG ORAL DAILY for 5 Days, #10 TAB Prov: Leonardo Vickers 07/20/20 Levofloxacin (LEVOFLOXACIN*) 500 Mg Tablet 500 MG ORAL DAILY for 14 Days, #14 TAB Prov: Leonardo Vickers 07/20/20 Referrals: [facility]ERR[facility] (PCP) Patient Instructions: Prostatitis, [id number] Additional Instructions: Take medication as directed, follow primary care provider, self isolate for the next 2 weeks, if worsening symptoms return to the emergency room Leonardo Vickers Jul 20, 2020 16:12
[2020-07-20] MEDS ORDERED: PREDNISONE20 MG ORAL (16:13)
[2020-07-20] MEDS ORDERED: LEVOFLOXACIN500 MG ORAL (16:13)
[2020-07-20 16:20] VITALS: BP 115/76
== END 2020-07-20 16:20 | disposition home or self-care (01) ==
LOC: EMR 13:56
DX: U07.1 COVID-19 (principal); R05 Cough; N41.9 Inflammatory disease of prostate, unspecified
CPT/HCPCS: 71045; 74176; 81003; U0002; Z7502; 99284